=== PATIENT | female | born 1960 | race Caucasian/White ===

== ENCOUNTER 2017-06-07 06:24 | Inpatient (IN) | payer OTHER ==
[~2017-06-07] VITALS: Ht 162.6 cm; Wt 119.0 kg
--- NOTE | 2017-06-07 07:12 | ED GENERAL ADULT ---
See Addendum History of Present Illness General Chief Complaint: General Adult Stated Complaint: SEEN AT [facility] C/O BLOOD CLOT,FEVER,HX INF Source: patient, old records Exam Limitations: no limitations Vital Signs & Intake/Output Vital Signs & Intake/Output Vital Signs Date Time Temp Pulse Resp B/P B/P Pulse O2 O2 Flow FiO2 Mean Ox Delivery Rate 06/07 0803 97.2 06/07 0830 100.2 06/07 0825 100.6 85 06/07 0740 97 Room Air 06/07 0730 100.3 110 144/90 06/07 0641 102.8 122 18 158/79 94 Room Air Allergies Coded Allergies: cefaclor (From CECLOR) (UNKNOWN 06/07/17) pseudoephedrine (From ACTIFED) (UNKNOWN 06/07/17) triprolidine (From ACTIFED) (UNKNOWN 06/07/17) Reconcile Medications Apixaban (Eliquis) 5 MG TABLET 1 TAB PO BID BLOOD THINNER (Reported) Ciprofloxacin HCl (Cipro) 500 MG TABLET 1 TAB PO BID ANTIBIOTIC, INFECTION ( Reported) Cyanocobalamin (Vitamin B-12) 1,000 MCG TABLET 1 TAB PO DAILY VITAMIN SUPPORT (Reported) Insulin Glargine,Hum.rec.anlog (Lantus Solostar) 100 UNIT/ML (3 ML) INSULN.PEN 80 UNIT SC DAILY DIABETES (Reported) Insulin Glargine,Hum.rec.anlog (Lantus Solostar) 100 UNIT/ML (3 ML) INSULN.PEN 25 UNIT SC QPM DIABETES (Reported) L-Methylfolate (Deplin-Algal Oil 15 MG Capsule) 15 MG-90.314 MG CAPSULE 1 CAP PO DAILY SUPPLEMENT (Reported) Levothyroxine Sodium 200 MCG TABLET 1 TAB PO DAILY AC THYROID (Reported) Pyridoxine HCl (Vitamin B-6) 50 MG TABLET 1 TAB PO DAILY VITAMIN SUPPORT ( Reported) Simvastatin (Zocor*) 20 MG TABLET 1 TAB PO DAILY CHOLESTEROL (Reported) Telmisartan (Micardis) 80 MG TABLET 1 TAB PO DAILY HEART (Reported) Triage Note: TRIAGE: PATIENT TO ER REPORTING 8/10 PAIN TO R MIDDLE OF BACK AND UNDER R ARM, NO INJURIES. SAW GUILLERMINA BRENSTEINP DID BLOODWORK WHICH SHOWED INFECTION, TAKING CIPRO FOR BACTERIA IN URINE, "BUT IF I DIDNT GET BETTER WAS TOLD TO COME IN TO HOSPITAL." TEMP 102.8, TOOK TYLENOL "EARLIER, THE 8 HOUR TAB." REPORTS WAS ALSO TAKING FLEXERIL W/ RELIEF THOUGH STOPPED TAKING. DENIES URINARY SX, "ALMOST LIKE A KIDNEY STONE THAT DOESN'T FEEL LIKE IT'S PASSING." HX KIDNEY STONES. Triage Nurses Notes Reviewed? yes HPI: Patient presents to the emergency department complaining of a fever that she's had for the past few weeks. She also has anorexia and myalgias. Patient states that approximately 3 weeks ago she went to [facility] because of the fever. At that time she was having chest and back pain. During that visit this , she had a pulmonary embolus so she was admitted. Patient was started L) and subsequently was discharged. Patient continued to run fevers but no source was found. Patient followed up with her primary care physician 3 days ago for continued fevers. In the office she was found to have bacteria show she was started on Cipro. Patient was taking the Cipro however she still does not feel well and so was instructed to come to the emergency department. Patient denies any nausea or vomiting. There is no dysuria. There is no diarrhea. There is no headache. She continues to have back pain but in the setting of diffuse myalgias. Past History Travel History Traveled to [place] past 21 day No Medical History Any Pertinent Medical History? 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 No Review of Systems Review of Systems Constitutional: Reports: see HPI, chills, fever. EENTM: Reports: no symptoms. Respiratory: Reports: no symptoms. Cardiovascular: Reports: no symptoms. GI: Reports: see HPI (ANOREXIA). Genitourinary: Reports: no symptoms. Musculoskeletal: Reports: see HPI, muscle pain. Skin: Reports: no symptoms. Neurological/Psychological: Reports: no symptoms. Hematologic/Endocrine: Reports: no symptoms. Immunologic/Allergic: Reports: no symptoms. All Other Systems: Reviewed and Negative Physical Exam Physical Exam General Appearance: well developed/nourished, alert, awake, anxious, mild distress Head: atraumatic, normal appearance Eyes: Bilateral: PERRL, EOMI. Ears, Nose, Throat: normal pharynx, normal ENT inspection, hearing grossly normal Neck: normal inspection, supple, full range of motion Respiratory: normal breath sounds, chest non-tender, no respiratory distress, lungs clear Cardiovascular: regular rate/rhythm, normal peripheral pulses Gastrointestinal: normal bowel sounds, soft, non-tender, no organomegaly Back: normal inspection, normal range of motion Extremities: normal inspection, normal capillary refill, normal range of motion, no edema Neurologic/Psych: no motor/sensory deficits, awake, alert, oriented x 3, normal gait, normal mood/affect Skin: intact, normal color, warm/dry Lymphatic: no anterior cervical willis Core Measures ACS in differential dx? No CVA/TIA Diagnosis: No Sepsis Present: No Sepsis Focused Exam Completed? No Progress Differential Diagnoses I considered the following diagnoses in my evaluation of the patient: [PNEUMONIA , INFLUENZA, SEPSIS, BACTERMIA, VIREMIA, ] Plan of Care: Orders Procedure Date/time Status Regular Diet 06/07 L Active LACTIC ACID 06/[address] CHEST W IV CONTRAST 06/[address] ABD & PELVIS W IV CONTRAST 06/07 0945 Active Add-on Test (ER Only) 06/07 0840 Active RAPID VIRAL INFLUENZA A 06/07 710 Complete CULTURE,URINE 06/07 710 Active BLOOD CULTURE 06/07 710 Active URINALYSIS 06/07 710 Complete LYME TITRE 06/07 07 Active LACTIC ACID 06/07 0711 Complete COMPREHENSIVE METABOLIC PANEL 06/07 07 Complete CBC WITHOUT DIFFERENTIAL 06/07 0611 Complete Laboratory Tests 06/07/17 0900: Urinalysis LIGHT H, Urine Color YEL, Urine Clarity HAZY H, Urine pH 6.0, Ur Specific [place] >= 1.030, Urine Protein 100 H, Urine Ketones TRACE H, Urine Nitrite NEG, Urine Bilirubin NEG@ICTO, Urine Urobilinogen 1.0, Ur Leukocyte Esterase NEG, Ur Microscopic SEDIMENT EXAMINED, Urine RBC 1-3, Urine WBC 5-10 H , Ur Epithelial Cells MANY H, Urine Bacteria MANY H, Urine Mucus MOD H, Urine Hemoglobin SMALL H, Urine Glucose 100 H 06/07/17 0711: Lyme Disease Antibody Pending 06/07/17 0650: Anion Gap 14, Estimated GFR > 60, BUN/Creatinine Ratio 30.0 H, Glucose 224 H, Lactic Acid 1.2, Calcium 9.2, Total Bilirubin 1.1, AST 42 H, ALT 131 H, Alkaline Phosphatase 304 H, Total Protein 6.7, Albumin 3.1 L, Globulin 3.6, Albumin/Globulin Ratio 0.9 L, CBC w Diff MAN DIFF ORDERED, RBC 4.11 L, MCV 78.6 L, MCH 25.2 L, MCHC 32.0 L, RDW 14.8 H, MPV 10.0, Gran % 81.3 H, Lymphocytes % 9.8 L, Monocytes % 8.1, Eosinophils % 0.6, Basophils % 0.2, Absolute Granulocytes 14.8 H, Absolute Lymphocytes 1.8, Absolute Monocytes 1.5 H, Absolute Eosinophils 0.1, Absolute Basophils 0, Platelet Estimate ADEQUATE, Anisocytosis 1+ Microbiology 06/07 899 URINE ROUT: Urine Culture - RECD 06/07 729 NASOPHARYN: Influenza Virus A & B Rapid Smear - COMP 06/07 699 BLOOD: Blood Culture - RECD 06/07 0650 BLOOD: Blood Culture - RECD Diagnostic Imaging: Viewed by Me: Radiology Read. Discussed w/RAD: Radiology Read. CXR Impression: PATIENT: ROSITA HICKS PRESENT AGE: 57 PATIENT ACCOUNT NO: [id number] : 61 LOCATION: [facility] ORDERING PHYSICIAN: Jonathon Villa MD SERVICE DATE: 06/07/17 EXAM TYPE: RAD - XRY-CHEST XRAY, TWO VIEWS EXAMINATION: XR CHEST CLINICAL INFORMATION: Fever. COMPARISON: None TECHNIQUE: 2 views of the chest were obtained. FINDINGS: The cardiac mediastinal silhouette is normal in appearance. No effusions or pneumothoraces are visualized. A normal pattern of pulmonary vasculature is identified. The lungs are clear. No gross skeletal abnormalities are noted. IMPRESSION: Normal chest. Lungs clear. DICTATED BY: Salbador Huber MD DATE/TIME DICTATED:06/07/17739 BOND RUNNER:ALLY DATE/TIME TRANSCRIBED:06/07/17739 CONFIDENTIAL, DO NOT COPY WITHOUT APPROPRIATE AUTHORIZATION. <Electronically signed in Other Vendor System> SIGNED BY: Salbador Huber MD 06/07/17 0744 Initial ED EKG: none Departure Departure Disposition: STILL A PATIENT Condition: Stable Clinical Impression Primary Impression: Fever of unknown origin Secondary Impressions: Leukocytosis Referrals: Lynn SINGER,Armando Johnson (PCP/Family) Departure Forms: Customer Survey General Discharge Information Admission Note Spoke With: Velma Claros MD Documentation of Exam: Documentation of any treatments & extenuating circumstances including Concerns Regarding Discharge (functional status, medication knowledge or non-compliance, living conditions, etc.) that warrant an admission rather than observation: [IV fluids, watch off antibiotics and follow-up cultures. May need repeat cultures if fever continues and once she is off antibiotics. Possibility is strep. Tendons endocarditis, she could have an underlying cancer causing the fever and leukocytosis as well as the hypercoagulable state given that she's had a recent diagnosis of a pulmonary emboli without any risk factors. There could also be an underlying rheumatological disorder including vasculitis. Patient will require admission for further workup.] Critical Care Note Critical Care Note Critical Care Time: mins: (90 MN)
--- NOTE | 2017-06-07 07:44 | RADIOLOGY REPORT ---
EXAMINATION: XR CHEST CLINICAL INFORMATION: Fever. COMPARISON: None TECHNIQUE: 2 views of the chest were obtained. FINDINGS: The cardiac mediastinal silhouette is normal in appearance. No effusions or pneumothoraces are visualized. A normal pattern of pulmonary vasculature is identified. The lungs are clear. No gross skeletal abnormalities are noted. IMPRESSION: Normal chest. Lungs clear.
[2017-06-07 07:46] LABS: ABSOLUTE BASOPHIL COUNT 0 /CUMM (0.0-0.2); ABSOLUTE EOSINOPHIL COUNT 0.1 /CUMM (0.0-0.7); ABSOLUTE GRANULOCYTE CT 14.8 /CUMM (1.4-6.5); ABSOLUTE LYMPH COUNT 1.8 /CUMM (1.2-3.4); ABSOLUTE MONOCYTE COUNT 1.5 /CUMM (0.10-0.60); BASOPHIL % 0.2 % (0.0-2.0); EOSINOPHIL % 0.6 % (0-5); GRANULOCYTE % 81.3 % (42.2-75.2); HEMATOCRIT 32.3 % (37-47); MEAN CORPUSCULAR HGB 25.2 PG (27.0-31.0); MEAN CORPUSCULAR VOLUME 78.6 FL (81.0-99.0); PLATELET COUNT 367 /CUMM (130-400); RBC DISTRIBUTION WIDTH 14.8 % (11.5-14.5); RED BLOOD CELL CT 4.11 /CUMM (4.20-5.40); WHITE BLOOD CELL COUNT 18.2 /CUMM (4.8-10.8)
[2017-06-07] MEDS ORDERED: ELIQUIS5 M1 PO (07:53)
[2017-06-07] MEDS ORDERED: CIPRO500 M1 PO (07:53)
[2017-06-07] MEDS ORDERED: LEVOTHYROXINE200 MC1 PO (07:53)
[2017-06-07] MEDS ORDERED: LANTUS SOL100 UNIT/1 SC ×2 (07:54)
[2017-06-07] MEDS ORDERED: ZOCOR20 M1 PO (07:55)
[2017-06-07] MEDS ORDERED: DEPLIN-ALGAL O1 EAC1 PO (07:56)
[2017-06-07] MEDS ORDERED: MICARDIS80 M1 PO (07:56)
[2017-06-07] MEDS ORDERED: VITAMIN B-650 M2 PO (07:56)
[2017-06-07] MEDS ORDERED: VITAMIN B-121000 MC3 PO (07:57)
--- NOTE | 2017-06-07 10:05 | History & Physical ---
Kristina Pabon MD,[facility] 06/07/17 1005: General Information and HPI MD Statement: I have seen and personally examined ROSITA HICKS and documented this H&P. The patient is a 57 year old F who presented with a patient stated chief complaint of [fever]. Source of Information: patient Exam Limitations: patient's age, clinical condition History of Present Illness: 57-year-old female with past medical history significant for pulmonary embolism on anticoagulation with Eliquis, insulin-dependent diabetes mellitus, hypothyroidism on levothyroxine, hyperlipidemia on statin, hypertension on Telmisartan, currently on ciprofloxacin for urinary tract infection, came to emergency department patient chief complain of fever, anorexia and myalgias. Patient states that around 3 weeks ago she went to [facility]. She was febrile at that time and also was complaining of chest and back pain she was found to have pulmonary embolism and she was admitted there she was started on Eliquis and discharged. According to patient she continued to develop fevers and no source was identified. Patient followed up with her primary care doctor 3 days ago and was found to have urinary tract infection started on Cipro. She was not feeling well and therefore was told to come to emergency department. Review of system was negative for any chest pain, shortness of breath, nausea, vomiting, abdominal pain, dysuria, diarrhea, or headaches. Review of system positive for continued back pain with with myalgias. 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 EENTM: Denies: visual changes. Cardiovascular: Denies: chest pain, palpitations. Respiratory: Denies: cough, short of breath. GI: Denies: abdominal pain, nausea. Musculoskeletal: Reports: back pain. Neurological/Psychological: Denies: headache. All Other Systems: Reviewed and Negative Exam & Diagnostic Data Last 24 Hrs of Vital Signs/I&O Vital Signs Date Time Temp Pulse Resp B/P B/P Pulse O2 O2 Flow FiO2 Mean Ox Delivery Rate 06/07 0903 97.2 06/07 0830 100.2 06/07 0825 100.6 85 06/07 0740 97 Room Air 06/07 0730 100.3 110 144/90 06/07 0641 102.8 122 18 158/79 94 Room Air Intake & Output 06/07 1600 06/07 0800 06/07 0000 Intake Total 1100 Output Total 150 Balance 950 Intake, IV 1000 Intake, Oral 100 Output, Urine 150 Patient 255 lb Weight Weight Reported by Patient Measurement Method Physical Exam General Appearance Alert, Oriented X3, Cooperative, Mild Distress Skin No Rashes HEENT Atraumatic Cardiovascular Regular Rate, Normal S1, Normal S2 Lungs Clear to Auscultation, Normal Air Movement Abdomen Normal Bowel Sounds, Soft, No Tenderness, Obese Neurological Normal Speech, Normal Tone, Sensation Intact Extremities No Cyanosis, No Edema Vascular Normal Pulses Last 24 Hrs of Labs/Maco: Laboratory Tests 06/07/17 0900: Urinalysis LIGHT H, Urine Color YEL, Urine Clarity HAZY H, Urine pH 6.0, Ur Specific [place] >= 1.030, Urine Protein 100 H, Urine Ketones TRACE H, Urine Nitrite NEG, Urine Bilirubin NEG@ICTO, Urine Urobilinogen 1.0, Ur Leukocyte Esterase NEG, Ur Microscopic SEDIMENT EXAMINED, Urine RBC 1-3, Urine WBC 5-10 H , Ur Epithelial Cells MANY H, Urine Bacteria MANY H, Urine Mucus MOD H, Urine Hemoglobin SMALL H, Urine Glucose 100 H 06/07/17 0711: Lyme Disease Antibody Pending 06/07/17 0650: Anion Gap 14, Estimated GFR > 60, BUN/Creatinine Ratio 30.0 H, Glucose 224 H, Lactic Acid 1.2, Calcium 9.2, Total Bilirubin 1.1, AST 42 H, ALT 131 H, Alkaline Phosphatase 304 H, Total Protein 6.7, Albumin 3.1 L, Globulin 3.6, Albumin/Globulin Ratio 0.9 L, CBC w Diff MAN DIFF ORDERED, RBC 4.11 L, MCV 78.6 L, MCH 25.2 L, MCHC 32.0 L, RDW 14.8 H, MPV 10.0, Gran % 81.3 H, Lymphocytes % 9.8 L, Monocytes % 8.1, Eosinophils % 0.6, Basophils % 0.2, Absolute Granulocytes 14.8 H, Absolute Lymphocytes 1.8, Absolute Monocytes 1.5 H, Absolute Eosinophils 0.1, Absolute Basophils 0, Platelet Estimate ADEQUATE, Anisocytosis 1+ Microbiology 06/07 899 URINE ROUT: Urine Culture - RECD 06/07 729 NASOPHARYN: Influenza Virus A & B Rapid Smear - COMP 06/07 699 BLOOD: Blood Culture - RECD 06/07 0650 BLOOD: Blood Culture - RECD Diagnostic Data CXR Results No acute cardiopulmonary findings Assessment/Plan Assessment: 57-year-old female with past medical history significant for pulmonary embolism on anticoagulation with Eliquis, insulin-dependent diabetes mellitus, hypothyroidism on levothyroxine, hyperlipidemia on statin, hypertension on Telmisartan, currently on ciprofloxacin for urinary tract infection, came to emergency department patient chief complain of fever, anorexia and myalgias. Vitals in emergency department patient febrile with a MAXIMUM TEMPERATURE of 102.8, tachycardic with a heart rate of 122 on admission, no tachypnea, blood pressure systolic stable 144-158 and diastolic 79-90, oxygen saturation of 96% on room air. Significant labs on admission showed white count leukocytosis of 18.2, without any baseline labs available, left shift granulocytes of 81.3,, platelet count 367, hemoglobin of 10.3 hematocrit of 32.3, no baseline available, no significant electrolyte abnormalities sodium 140, potassium 3.9, BUN 15 and creatinine 0.5, glucose of 224, AST 42 and 80 of 131, no baseline available, alkaline phosphatase 304, UA positive for trace ketones, 5-10 WBC, and bacteria. Lyme disease antibody pending, CT chest abdomen pelvis results There are a few small bilateral pulmonary nodules -- probably metastases. Ill- defined hypodense mass of the pancreatic body surrounds the splenic artery and occludes the splenic vein. Multiple hypodense lesions within the liver are consistent with metastases. Probable metastases within the enlarged posterosuperior spleen, as well. Lymphadenopathy is present within the abdomen. Left adrenal metastasis. A somewhat wedge-shaped hypodense focus in hepatic segment VII could represent an infarct. Large leiomyoma of the uterus. Patient was admitted on general medicine so for the management of following problems #1 Possible Pancreatic malignancy with metastasis #2 Fever of unknown origin/leukocytosis/sepsis #3 Transaminitis #4 Recent urinary tract infection on antibiotics #5 Recent history of pulmonary embolism on eliquis #6 History of [id number] diabetes mellitus Possible Pancreatic malignancy with metastasis Given recent findings of CAT scan, it seems like patient has a possible pancreatic cancer with metastasis. After discussing with gastroenterology, plan is to get a liver biopsy to confirm the diagnosis. We will discuss with interventional radiology about the possible procedure of liver biopsy as patient has taken her Eliquis this morning. In the meanwhile he should place the patient on IV heparin. oncology consult placed. Vascular surgery for Fever of unknown origin/leukocytosis/? sepsis Possibility of liver abscesses in the setting of fever plus leukocytosis, was also discussed and therefore surgical consultation was also obtained. We will also work her up to rule out the possibilities of infection. Patient is pancultured. We will follow urine culture as patient was being treated with ciprofloxacin for UTI recently. Fever subsided with IV Tylenol. Patient on admission was tachycardic, high-grade fever, suspected source of infection is unclear. No lactic acidosis and stable blood pressure. Patient does meet the criteria for sepsis but our suspicion for source is very low. she is hemodynamically stable. no lactic acid. She was already given 100 of normal saline we will start her oncontinous IV fluids. Transaminitis When followed should avoid IV Tylenol as patient already has transaminitis which could be secondary to malignancy or the Tylenol 625 mg, 2 tablets every 8 hours that patient was taking. We should also obtain Tylenol levels. Chronic medical conditions We will continue patient's antihypertensive medications, Accu-Cheks and insulin sliding scale along with long-acting insulin Patient is full code Patient is on Eliquis for DVT prophylaxis Patient is on diabetic diet As Ranked By This Provider Problem List: 1. Leukocytosis 2. Fever of unknown origin Core Measures/Misc (11/19) Acute Coronary Syndrome ACS Diagnosis: No Congestive Heart Failure Congestive Heart Failure Diagnosis No Cerebrovascular Accident CVA/TIA Diagnosis: No VTE (View Protocol) VTE Risk Factors Age>40 No Mechanical VTE Prophylaxis d/t N/A MechProphylax Ordered No VTE Pharm Prophylaxis d/t Medical Contraindication Sepsis (View protocol) Sepsis Present: No Elias SINGER,Laura 06/07/17 1439: General Information and HPI Allergies/Medications Home Med list Apixaban (Eliquis) 5 MG TABLET 1 TAB PO BID BLOOD THINNER (Reported) Ciprofloxacin HCl (Cipro) 500 MG TABLET 1 TAB PO BID ANTIBIOTIC, INFECTION ( Reported) Cyanocobalamin (Vitamin B-12) 1,000 MCG TABLET 1 TAB PO DAILY VITAMIN SUPPORT (Reported) Insulin Glargine,Hum.rec.anlog (Lantus Solostar) 100 UNIT/ML (3 ML) INSULN.PEN 80 UNIT SC DAILY DIABETES (Reported) Insulin Glargine,Hum.rec.anlog (Lantus Solostar) 100 UNIT/ML (3 ML) INSULN.PEN 25 UNIT SC QPM DIABETES (Reported) L-Methylfolate (Deplin-Algal Oil 15 MG Capsule) 15 MG-90.314 MG CAPSULE 1 CAP PO DAILY SUPPLEMENT (Reported) Levothyroxine Sodium 200 MCG TABLET 1 TAB PO DAILY AC THYROID (Reported) Pyridoxine HCl (Vitamin B-6) 50 MG TABLET 1 TAB PO DAILY VITAMIN SUPPORT ( Reported) Simvastatin (Zocor*) 20 MG TABLET 1 TAB PO DAILY CHOLESTEROL (Reported) Telmisartan (Micardis) 80 MG TABLET 1 TAB PO DAILY HEART (Reported) Attending MD Review Statement Attending Statement Attending MD Statement: examined this patient, discuss w/resident/PA/MALT ROASTER, agreed w/resident/PA/MALT ROASTER, discussed with family, reviewed EMR data (avail), discussed with nursing, reviewed images, amended to note Attending Assessment/Plan: Please also see my separate addendum.
[2017-06-07 11:10] VITALS: BP 152/96
[2017-06-07 11:18] VITALS: BP 152/96
--- NOTE | 2017-06-07 11:41 | CT SCAN REPORT ---
EXAMINATION: CT CHEST WITH IV CONTRAST CT ABDOMEN AND PELVIS WITH IV CONTRAST CLINICAL INFORMATION: Fever. Elevated liver function tests and leukocytosis. Abscess? Lymphoma? COMPARISON: CXR from 06/07/2017 TECHNIQUE: Multidetector CT imaging examination of the chest, abdomen and pelvis was performed with intravenous administration of 95 mL Optiray 320. Axial images are displayed at 5 mm and 0.65 mm slice thickness. Coronal and sagittal reformatted images were generated at the technologist's workstation and submitted for review. DLP: 1423 mGy-cm FINDINGS: CHEST - LUNGS and PLEURA: Trachea and central airways are widely patent and normal in caliber. There is a 0.5 cm solid nodule in the anterior right upper lobe (image 125, series 4). A 0.6 cm solid, noncalcified nodule is present in the medial right lower lobe (image 277, series 4). Small, 0.2 cm nodule is present within the lingula (image 254, series 4). Mild atelectasis in dependent aspect of each lower lobe. No pulmonary consolidation or pleural effusion. MEDIASTINUM: Cardiac chambers, pulmonary arteries and thoracic aorta are normal in caliber. The esophagus is unremarkable. No mediastinal mass. LYMPHATICS: No axillary or hilar lymphadenopathy. Within the lower, posterior mediastinum, an abnormally enlarged left-sided paraesophageal lymph node is 1.2 cm short axis dimension. CHEST WALL/BONES: Small sclerotic focus within the sternum is compatible with bone island. Bone island of the T6 vertebral body. No aggressive osseous lesion in the thorax. ABDOMEN AND PELVIS - HEPATOBILIARY: Gallbladder is surgically absent. No intrahepatic or extrahepatic bile duct dilatation. Multiple hypoenhancing masses (generally with attenuation in the range of 20-40 Hounsfield units) are scattered throughout the liver and are consistent with metastases. The majority of lesions are in the size range of 0.5 cm to 1.8 cm. In addition, there is an approximately 2 cm wide, somewhat wedge-shaped hypodense focus within hepatic segment VII, and the wedge-shape suggest possibility of infarction. PANCREAS: Ill-defined hypodense mass of the pancreatic body measures 7.5 cm transverse and 4 cm AP; it surrounds the splenic artery. The splenic vein is occluded at its confluence with the superior mesenteric vein, and thrombus projects into the proximal main portal vein. SPLEEN: Prominent spleen measures 15.8 cm AP. The 1.1 cm hypodense lesion in the inferior spleen has focal calcification along its inferior wall; this lesion has attenuation of 20 HU, suggestive of a cyst. Ill-defined foci of decreased attenuation within the posterior superior spleen are suspicious for metastases (image 365, series 4). ADRENAL GLANDS: The right adrenal gland is normal. 3.1 x 2.6 cm mass of the left adrenal gland has attenuation of 38 HU on these contrast-enhanced images. KIDNEYS, URETERS, BLADDER: Kidneys are normal in size and enhance symmetrically. No renal mass, nephrolithiasis or hydronephrosis. Urinary bladder is unremarkable. GI TRACT AND PERITONEUM: Stomach is normal. Bowel loops are normal in caliber. Appendix is normal. No evidence of inflammation or obstruction along the gastrointestinal tract. No ascites or pneumoperitoneum. ABDOMINAL WALL: Minimal protrusion of fat into the umbilicus.. VASCULAR: Mild atherosclerosis of the abdominal aorta. LYMPH NODES: Mildly enlarged, confluent, hepatic and periportal lymph nodes. A large portacaval lymph node measures 2 cm AP dimension (as measured on image 450, series 4). Superior to the renal vessels, the largest left para-aortic lymph node is 1 cm short axis dimension. Inferior to the renal vessels, largest left para-aortic lymph node is 1.3 cm axis dimension. No iliac or inguinal lymphadenopathy.. PELVIC VISCERA: 7.7 x 6.6 x 6 cm homogeneous mass of the anterior uterine body is consistent with leiomyoma. No adnexal mass or pelvic free fluid. OSSEOUS STRUCTURES: No suspicious lesions within the lumbar spine, pelvic bones or proximal femurs. Multilevel facet arthropathy of the lumbar spine. Transitional lumbosacral anatomy with lumbarization of S1. IMPRESSION: 1. There are a few small bilateral pulmonary nodules -- probably metastases. 2. Ill-defined hypodense mass of the pancreatic body surrounds the splenic artery and occludes the splenic vein. Multiple hypodense lesions within the liver are consistent with metastases. Probable metastases within the enlarged posterosuperior spleen, as well. Lymphadenopathy is present within the abdomen. Left adrenal metastasis. 3. A somewhat wedge-shaped hypodense focus in hepatic segment VII could represent an infarct. 4. Large leiomyoma of the uterus.
--- NOTE | 2017-06-07 12:12 | CT SCAN REPORT ---
EXAMINATION: CT CHEST, ABDOMEN AND PELVIS WITH CONTRAST CLINICAL INFORMATION: Fever, leukocytosis. Evaluate for abscess formation COMPARISON: None TECHNIQUE: Multidetector volumetric CT imaging of the chest was obtained after the administration of 50 mL of Optiray 320 intravenous contrast without immediate adverse reactions. Axial MIP volume rendering provided. Sagittal and coronal reformatted images were obtained. DLP: 1423.38 mGy-cm FINDINGS: BEAD MAKER: Unremarkable LUNGS: 0.7 cm right upper lobe nodule (series 5 image 126). Linear atelectatic changes noted in the bilateral lower lobes, right greater than left. Pleural-based atelectatic change right lower lobe (series 5 image 164). Tracheal bronchial tree is within normal limits.. MEDIASTINUM: Mild low-attenuation prominent lymph node noted in the right pretracheal region measuring 0.7 cm in short axis. Reactive nodes also noted in the prevascular, subcarinal and epicardiac location. No gross hilar lymphadenopathy. PLEURA: Minor pleural thickening bilateral lower lobes. AXILLA: No evidence of lymphadenopathy. No suspicious abscess formation identified in the chest wall. No organized fluid collection. LIVER, GALLBLADDER AND BILIARY TREE:: Multiple low-attenuation foci scattered within the liver and spleen. Most of these foci do not demonstrate simple fluid attenuation larger lesions are as follows: Segment 7 right hepatic lobe (series 2 image 41 measuring 1.6 cm, junction segment 7/8 right hepatic lobe measuring 1.7 cm segment IVb left hepatic lobe measuring 1.5 cm. Wedge-shaped lobulated low-attenuation noted in the subcapsular location junction segment 6/7 measuring approximately 2.6 x 2.4 x 5.6 cm (series 2 image 50 and series 602 image 88). Hounsfield units are not compatible with simple cyst. Mild hepatosplenomegaly. SPLEEN: Low-attenuation foci also identified in the spleen with a larger focus in the posterior spleen measuring 1.2 cm (series 2 image 46). Lesion with punctate internal hyperdensity medial inferior splenic hilar region measuring 1.2 cm (series 2 image 56-57). Spleen also demonstrates enhancing focus in the posterior spleen measuring 1.2 cm (series 2 image 53). PANCREAS: There is abnormal lobulated elongated low-attenuation involving the body and tail of the pancreas measuring approximately 7.6 x 4.7 cm (series 2 image 57-59). There is hazy stranding surrounding the pancreatic tissue. Internal attenuation is higher than simple fluid. Nonvisualization of the splenic vein. There is focal low-attenuation filling defect noted in the adjacent portal vein (series 2 image 59 and series 602 image 53) suspicious for adjacent portal vein thrombosis unlikely acute splenic vein thrombosis. Haziness/edema also surrounding the splenic artery. ADRENAL GLANDS: Left adrenal mass with mild heterogeneous enhancement measuring approximately 3.3 x 2.8 cm. Unremarkable right adrenal gland. KIDNEYS: Symmetric bilateral enhancement. GI tract: No acute bowel pathology. Peripancreatic hazy infiltration abutting the adjacent gastric wall. Mild colonic diverticulosis. No acute diverticulitis appreciated. LYMPH NODES: Multiple enlarged retroperitoneal and peripancreatic lymph nodes. Larger lymph node demonstrating internal low attenuation noted in the precaval location (series 602 image 58-61) measuring approximately 2.2 cm in short axis . Larger left periaortic lymph node (series 602 image 56). Findings are compatible with lymphadenopathy. Vascular structures: Findings suspicious for acute/subacute splenic vein and partial portal venous thrombosis. Infiltrating/inflammatory changes surrounding the proximal superior mesenteric vein. Aorta is within normal limits. PELVIS: Enlarged anteverted uterus measuring 11.6 x 9.5 x 8.2 cm. There is internal low attenuation measuring 6.6 x 8 x 6.7 cm. Hounsfield units are compatible with solid attenuation. Based on its location, it is uncertain if this represents endometrial or myometrial mass. There is prominence of the adnexal vessels left superolateral aspect of the uterus. No evidence of free fluid. OSSEOUS STRUCTURES: No acute or suspicious osseous abnormality. IMPRESSION: 1. Large lobulated low-attenuation masslike focus involving the body and tail of the pancreas measuring approximately 7.6 x 4.7 cm. There is adjacent splenic vein thrombosis and partial thrombosis at the confluence of the portal vein. Peripancreatic edema/infiltration is noted. Findings are suspicious for neoplastic process. Secondary pancreatitis from pancreatic ductal obstruction is a likely possibility. Differential possibility includes pancreatic abscesses given the patient's elevated white count and fever. Clinical, laboratory and possible biopsy correlation is recommended. 2. Peripancreatic, precaval and retroperitoneal lymphadenopathy. Largest precaval lymph node measures 2.2 cm in short axis with internal low attenuation. Metastatic lymphadenopathy is suspected. 3. Multiple low-attenuation hepatic and splenic foci. Metastatic disease or microabscesses series are included in the differential possibilities. Larger lesion appears lobulated subcapsular location posterior right hepatic lobe. 4. Mildly enhancing splenic lesion represents a nonspecific finding including small hemangioma. 5. Right upper lobe pulmonary nodule represents a nonspecific finding. Metastatic disease is included in the differential possibility. 6. Left adrenal mass suspicious for metastases. 7. Large uterine myometrial or endometrial mass. Differential possibility includes large fibroid. Critical results were discussed with Dr. Villa at 11:54 AM on 06/07/2017.
--- NOTE | 2017-06-07 12:53 | Cons- General Surgery ---
General Information and HPI Consulting Request Date of Consult: 06/07/17 Requested By: Addi Martinez MD History of Present Illness: Patient presents with recurrent fevers of unknown origin. Recently diagnosed with Pumonary embolism. No associated symptoms. No pain. No n/v/change to bowel or bladder habits. No dyspnea or cough. no msk symptoms. no chest pain. Allergies/Medications Allergies: Coded Allergies: cefaclor (From CECLOR) (UNKNOWN 06/07/17) pseudoephedrine (From ACTIFED) (UNKNOWN 06/07/17) triprolidine (From ACTIFED) (UNKNOWN 06/07/17) Home Med List: Apixaban (Eliquis) 5 MG TABLET 1 TAB PO BID BLOOD THINNER (Reported) Ciprofloxacin HCl (Cipro) 500 MG TABLET 1 TAB PO BID ANTIBIOTIC, INFECTION ( Reported) Cyanocobalamin (Vitamin B-12) 1,000 MCG TABLET 1 TAB PO DAILY VITAMIN SUPPORT (Reported) Insulin Glargine,Hum.rec.anlog (Lantus Solostar) 100 UNIT/ML (3 ML) INSULN.PEN 80 UNIT SC DAILY DIABETES (Reported) Insulin Glargine,Hum.rec.anlog (Lantus Solostar) 100 UNIT/ML (3 ML) INSULN.PEN 25 UNIT SC QPM DIABETES (Reported) L-Methylfolate (Deplin-Algal Oil 15 MG Capsule) 15 MG-90.314 MG CAPSULE 1 CAP PO DAILY SUPPLEMENT (Reported) Levothyroxine Sodium 200 MCG TABLET 1 TAB PO DAILY AC THYROID (Reported) Pyridoxine HCl (Vitamin B-6) 50 MG TABLET 1 TAB PO DAILY VITAMIN SUPPORT ( Reported) Simvastatin (Zocor*) 20 MG TABLET 1 TAB PO DAILY CHOLESTEROL (Reported) Telmisartan (Micardis) 80 MG TABLET 1 TAB PO DAILY HEART (Reported) Past History Medical History Blood Transfusion Hx: No Neurological: NONE, migraine EENT: sinusitis Cardiovascular: hypertension, hyperlipidemia Respiratory: obstructive sleep apnea Gastrointestinal: diverticulitis, POLYPS (BENIGN) Hepatic: NONE Renal: hematuria, nephrolithiasis Musculoskeletal: NONE, osteoarthritis Psychiatric: chronic pain disorder Endocrine: diabetes, hypothyroidism Blood Disorders: anemia Cancer(s): NONE 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 Home Smoking Status: Former Smoker ETOH Use: occasional use Illicit Drug Use: denies illicit drug use Review of Systems Review of Systems: see hpi Exam & Diagnostic Data Vital Signs and I&O Vital Signs Date Time Temp Pulse Resp B/P B/P Pulse O2 O2 Flow FiO2 Mean Ox Delivery Rate 06/07 1118 99.0 94 20 152/96 95 Room Air 06/07 1110 99.0 94 20 152/96 95 Room Air 06/07 1042 97.9 06/07 1022 97.2 80 18 165/77 99 Room Air 06/07 0903 97.2 06/07 0830 100.2 06/07 0825 100.6 85 06/07 0740 97 Room Air 06/07 0730 100.3 110 144/90 06/07 0641 102.8 122 18 158/79 94 Room Air Intake & Output 06/07 1600 06/07 0806/07 0000 06/06 1600 06/06 0806/06 0000 Intake Total 1100 Output Total 150 Balance 950 Intake, IV 1000 Intake, Oral 100 Output, Urine 150 Patient 255 lb Weight Weight Reported by Patient Measurement Method Physical Exam: gen; looks well. nad. obese. heent; anicteric, perrl, eomi abd; soft, nt, nd, no hernia, no mass. no hsm ext; no c/c/e. Last 24 Hours of Labs: Laboratory Tests 06/07 06/07 0900 0711 Serology Lyme Disease Antibody Pending Urines Urinalysis LIGHT H Urine Color (YEL,AMB,STR) YEL Urine Clarity (CLEAR) HAZY H Urine pH (5.0 - 8.0) 6.0 Ur Specific Moffit (1.001 - 1.035) >= 1.030 Urine Protein (NEG,<30 MG/DL) 100 H Urine Ketones (NEG) TRACE H Urine Nitrite (NEG) NEG Urine Bilirubin (NEG) NEG@ICTO Urine Urobilinogen (0.1 - 1.0 EU/dl) 1.0 Ur Leukocyte Esterase (NEG) NEG Ur Microscopic SEDIMENT EXAMINED Urine RBC (0 - 5 /HPF) 1-3 Urine WBC (0 - 2 /HPF) 5-10 H Ur Epithelial Cells (NONE,FEW) MANY H Urine Bacteria (NEG/NONE) MANY H Urine Mucus (FEW,NONE) MOD H Urine Hemoglobin (NEG) SMALL H Urine Glucose (N MG/DL) 100 H 06/07 0650 Chemistry Sodium (137 - 145 mmol/L) 140 Potassium (3.5 - 5.1 mmol/L) 3.9 Chloride (98 - 107 mmol/L) 97 L Carbon Dioxide (22 - 30 mmol/L) 29 Anion Gap (5 - 16) 14 BUN (7 - 17 mg/dL) 15 Creatinine (0.5 - 1.0 mg/dL) 0.5 Estimated GFR (>60 ml/min) > 60 BUN/Creatinine Ratio (7 - 25 %) 30.0 H Glucose (65 - 99 mg/dL) 224 H Lactic Acid (0.7 - 2.1 mmol/L) 1.2 Calcium (8.4 - 10.2 mg/dL) 9.2 Total Bilirubin (0.2 - 1.3 mg/dL) 1.1 AST (14 - 36 U/L) 42 H ALT (9 - 52 U/L) 131 H Alkaline Phosphatase (<127 U/L) 304 H Total Protein (6.3 - 8.2 g/dL) 6.7 Albumin (3.5 - 5.0 g/dL) 3.1 L Globulin (1.9 - 4.2 gm/dL) 3.6 Albumin/Globulin Ratio (1.1 - 2.2 %) 0.9 L Hematology CBC w Diff MAN DIFF ORDERED WBC (4.8 - 10.8 /CUMM) 18.2 H RBC (4.20 - 5.40 /CUMM) 4.11 L Hgb (12.0 - 16.0 G/DL) 10.3 L Hct (37 - 47 %) 32.3 L MCV (81.0 - 99.0 FL) 78.6 L MCH (27.0 - 31.0 PG) 25.2 L MCHC (33.0 - 37.0 G/DL) 32.0 L RDW (11.5 - 14.5 %) 14.8 H Plt Count (130 - 400 /CUMM) 367 MPV (7.4 - 10.4 FL) 10.0 Gran % (42.2 - 75.2 %) 81.3 H Lymphocytes % (20.5 - 51.1 %) 9.8 L Monocytes % (1.7 - 9.3 %) 8.1 Eosinophils % (0 - 5 %) 0.6 Basophils % (0.0 - 2.0 %) 0.2 Absolute Granulocytes (1.4 - 6.5 /CUMM) 14.8 H Absolute Lymphocytes (1.2 - 3.4 /CUMM) 1.8 Absolute Monocytes (0.10 - 0.60 /CUMM) 1.5 H Absolute Eosinophils (0.0 - 0.7 /CUMM) 0.1 Absolute Basophils (0.0 - 0.2 /CUMM) 0 Platelet Estimate (ADEQUATE) ADEQUATE Anisocytosis 1+ Imaging Results: CT images reviewed/viewed. . concern for pancreatic cancer with diffuse hepatic metastases. Assessment/Plan Assessment/Plan Findings c/w pancreatic cancer with hepatic metastases. Unclear source of fever. No role for surgery. Will need diagnostic needle biopsy by IR when anticoagulation reversed. Consult Acknowledgment - Thank you for your consult request.
[2017-06-07 14:26] VITALS: BP 157/98
--- NOTE | 2017-06-07 14:39 | PN- Att Addend ---
Attending Addendum Attending Brief Note 57 y/o F with pmh sig for recently diagnosed pulmonary embolism on anticoagulation with Eliquis, insulin-dependent diabetes mellitus, hypothyroidism on levothyroxine, hyperlipidemia on statin, hypertension, recently seen at [facility] for fever. Found to have pulmonary embolism and was started on Elqiuis. Patient claims that she has been sick for more than 3 weeks when she developed sinus infection. She got treated with Augmentin. It finally start to loosen up but then she developed fevers again then she went to [facility]. Prior to that she was treated at a walk-in clinic. She was discharged from [facility] and followed up with her primary care doctor because fever did not break. The MICRO COMPUTER DATA PROCESSOR at the primary care doctor's office ordered some blood work and a urine test. She was then started on Cipro for possible UTI. She continued to have fevers despite taking the Cipro therefore presented to [facility]. She also complains of pain on the right side of her abdomen including right upper quadrant and right lateral side of the mid back. She said that this pain has been present for a few days and she had a similar kind of pain in the past when she had a cholecystectomy done. She denies any weight loss, nausea, vomiting. She does have history of IBS that she has alternating constipation and diarrhea. She denies any change in the color of her stools. She said that her fevers are has high as 103. Flu swab was negative in the emergency room. Her imaging which included CT abdomen and pelvis and CT chest in the emergency room is consistent with multiple lesions in the liver as well as pancreatic mass. Vital Signs Date Time Temp Pulse Resp B/P B/P Pulse O2 O2 Flow FiO2 Mean Ox Delivery Rate / 1118 99.0 94 20 152/96 95 Room Air 04/05 1110 99.0 94 20 152/96 95 Room Air / 1042 97.9 / 1022 97.2 80 18 165/77 99 Room Air 04/05 0903 97.2 04/05 0830 100.2 04/05 0825 100.6 85 04/05 0740 97 Room Air / 0730 100.3 110 144/90 04/05 0641 102.8 122 18 158/79 94 Room Air on exam; aox3, nad. cv; s1,s2, rrr resp; clear abd; soft, tender in ruq, bs+ ext; no edema back: + tenderness in mid right lateral back. Laboratory Tests 06/07 06/07 0900 0711 Serology Lyme Disease Antibody Pending Urines Urinalysis LIGHT H Urine Color (YEL,AMB,STR) YEL Urine Clarity (CLEAR) HAZY H Urine pH (5.0 - 8.0) 6.0 Ur Specific Wiley (1.001 - 1.035) >= 1.030 Urine Protein (NEG,<30 MG/DL) 100 H Urine Ketones (NEG) TRACE H Urine Nitrite (NEG) NEG Urine Bilirubin (NEG) NEG@ICTO Urine Urobilinogen (0.1 - 1.0 EU/dl) 1.0 Ur Leukocyte Esterase (NEG) NEG Ur Microscopic SEDIMENT EXAMINED Urine RBC (0 - 5 /HPF) 1-3 Urine WBC (0 - 2 /HPF) 5-10 H Ur Epithelial Cells (NONE,FEW) MANY H Urine Bacteria (NEG/NONE) MANY H Urine Mucus (FEW,NONE) MOD H Urine Hemoglobin (NEG) SMALL H Urine Glucose (N MG/DL) 100 H 06/07 0650 Chemistry Sodium (137 - 145 mmol/L) 140 Potassium (3.5 - 5.1 mmol/L) 3.9 Chloride (98 - 107 mmol/L) 97 L Carbon Dioxide (22 - 30 mmol/L) 29 Anion Gap (5 - 16) 14 BUN (7 - 17 mg/dL) 15 Creatinine (0.5 - 1.0 mg/dL) 0.5 Estimated GFR (>60 ml/min) > 60 BUN/Creatinine Ratio (7 - 25 %) 30.0 H Glucose (65 - 99 mg/dL) 224 H Lactic Acid (0.7 - 2.1 mmol/L) 1.2 Calcium (8.4 - 10.2 mg/dL) 9.2 Total Bilirubin (0.2 - 1.3 mg/dL) 1.1 AST (14 - 36 U/L) 42 H ALT (9 - 52 U/L) 131 H Alkaline Phosphatase (<127 U/L) 304 H Total Protein (6.3 - 8.2 g/dL) 6.7 Albumin (3.5 - 5.0 g/dL) 3.1 L Globulin (1.9 - 4.2 gm/dL) 3.6 Albumin/Globulin Ratio (1.1 - 2.2 %) 0.9 L Hematology CBC w Diff MAN DIFF ORDERED WBC (4.8 - 10.8 /CUMM) 18.2 H RBC (4.20 - 5.40 /CUMM) 4.11 L Hgb (12.0 - 16.0 G/DL) 10.3 L Hct (37 - 47 %) 32.3 L MCV (81.0 - 99.0 FL) 78.6 L MCH (27.0 - 31.0 PG) 25.2 L MCHC (33.0 - 37.0 G/DL) 32.0 L RDW (11.5 - 14.5 %) 14.8 H Plt Count (130 - 400 /CUMM) 367 MPV (7.4 - 10.4 FL) 10.0 Gran % (42.2 - 75.2 %) 81.3 H Lymphocytes % (20.5 - 51.1 %) 9.8 L Monocytes % (1.7 - 9.3 %) 8.1 Eosinophils % (0 - 5 %) 0.6 Basophils % (0.0 - 2.0 %) 0.2 Absolute Granulocytes (1.4 - 6.5 /CUMM) 14.8 H Absolute Lymphocytes (1.2 - 3.4 /CUMM) 1.8 Absolute Monocytes (0.10 - 0.60 /CUMM) 1.5 H Absolute Eosinophils (0.0 - 0.7 /CUMM) 0.1 Absolute Basophils (0.0 - 0.2 /CUMM) 0 Platelet Estimate (ADEQUATE) ADEQUATE Anisocytosis 1+ Toxicology Acetaminophen (10.0 - 30.0 ug/mL) Pending CT chest with IV contrast: IMPRESSION: 1. Large lobulated low-attenuation masslike focus involving the body and tail of the pancreas measuring approximately 7.6 x 4.7 cm. There is adjacent splenic vein thrombosis and partial thrombosis at the confluence of the portal vein. Peripancreatic edema/infiltration is noted. Findings are suspicious for neoplastic process. Secondary pancreatitis from pancreatic ductal obstruction is a likely possibility. Differential possibility includes pancreatic abscesses given the patient's elevated white count and fever. Clinical, laboratory and possible biopsy correlation is recommended. 2. Peripancreatic, precaval and retroperitoneal lymphadenopathy. Largest precaval lymph node measures 2.2 cm in short axis with internal low attenuation. Metastatic lymphadenopathy is suspected. 3. Multiple low-attenuation hepatic and splenic foci. Metastatic disease or microabscesses series are included in the differential possibilities. Larger lesion appears lobulated subcapsular location posterior right hepatic lobe. 4. Mildly enhancing splenic lesion represents a nonspecific finding including small hemangioma. 5. Right upper lobe pulmonary nodule represents a nonspecific finding. Metastatic disease is included in the differential possibility. 6. Left adrenal mass suspicious for metastases. 7. Large uterine myometrial or endometrial mass. Differential possibility includes large fibroid. CT abd/pelvis: IMPRESSION: 1. There are a few small bilateral pulmonary nodules -- probably metastases. 2. Ill-defined hypodense mass of the pancreatic body surrounds the splenic artery and occludes the splenic vein. Multiple hypodense lesions within the liver are consistent with metastases. Probable metastases within the enlarged posterosuperior spleen, as well. Lymphadenopathy is present within the abdomen. Left adrenal metastasis. 3. A somewhat wedge-shaped hypodense focus in hepatic segment VII could represent an infarct. 4. Large leiomyoma of the uterus. A/P; 57 y/o F with pmh sig for recently diagnosed pulmonary embolism on anticoagulation with Eliquis, insulin-dependent diabetes mellitus, hypothyroidism on levothyroxine, hyperlipidemia on statin, hypertension, presenting with fevers. Imaging studies are consistent with multiple lesions in the liver the question of metastatic disease and a pancreatic mass with a question of relating to malignant process versus abscesses. Reteroperitoneal lymphadenopathy was also seen. Splenic vein as well as partial portal vein thrombosis is also seen. Patient admitted to medicine. Surgical consult was obtained from the emergency room. Please hold Eliquis. Please start the patient on heparin drip. Please obtain ID/GI/vascular consults. Patient's pain will be managed with analgesics. Flu swab negative. Please follow-up on urine culture, blood cultures. Urinalysis was not that impressive. Patient will need biopsy of these liver lesions. Please check with interventional radiology about the timeline for biopsy. Patient did take her Eliquis this a.m. Please avoid any other hepatotoxic medications. DVT px: Hep gtt Full code.
--- NOTE | 2017-06-07 14:43 | Cons- Infect Disease ---
General Information and HPI Consulting Request Date of Consult: 06/07/17 Requested By: Laura Griffin MD Reason for Consult: Fever/leukocytosis Source of Information: patient, family History of Present Illness: This is a 57-year-old woman with a history of diabetes, hypertension, hypothyroidism, irritable bowel syndrome, osteoarthritis and fibromyalgia, with chronic pain, hospitalized 2 weeks prior to admission at [facility] with a one week history of fevers, sinus congestion and the more acute onset of interscapular pain, found to be hypoxic and febrile and diagnosed with a pulmonary embolism, discharged on Eliquis, seen by her primary care physician 1 week prior to admission and treated with Flexeril for sciatica, begun on Ciprofloxacin 3 days prior to admission for a possible UTI, admitted today after presenting to the emergency room with persistent fevers, associated with chills and sweats, and right-sided back pain. On admission she was febrile to 102.8. Laboratory data revealed a white blood cell count of 18,000, BUN/creatinine 15 and 0.5, alkaline phosphatase 304, AST/ALT 42 and 131. Urinalysis 1-3 RBCs/5-10 WBCs. Chest x-ray was negative. CT of the chest, abdomen and pelvis revealed several pulmonary nodules, a large lobulated low attenuation masslike focus involving the body and tail of the pancreas, measuring 7.6 x 4.7 cm, with adjacent splenic vein thrombosis and a partial thrombosis of the confluence of the portal vein, peripancreatic edema/infiltration; peripancreatic, precaval and retroperitoneal lymphadenopathy; multiple low-attenuation hepatic and splenic lesions; possible infarct within the liver; left adrenal mass; large uterine myometrial or endometrial mass. Presently she reports mild discomfort in the right back. She denies any chest pain, cough, shortness of breath, nausea, vomiting or change in her usual abdominal discomfort or diarrhea and no dysuria. She does report a 20 pound weight loss over the past 2 years but denies any anorexia or decreased oral intake. Allergies/Medications Allergies: Coded Allergies: cefaclor (From CECLOR) (UNKNOWN 06/07/17) pseudoephedrine (From ACTIFED) (UNKNOWN 06/07/17) triprolidine (From ACTIFED) (UNKNOWN 06/07/17) Home Med List: Apixaban (Eliquis) 5 MG TABLET 1 TAB PO BID BLOOD THINNER (Reported) Ciprofloxacin HCl (Cipro) 500 MG TABLET 1 TAB PO BID ANTIBIOTIC, INFECTION ( Reported) Cyanocobalamin (Vitamin B-12) 1,000 MCG TABLET 1 TAB PO DAILY VITAMIN SUPPORT (Reported) Insulin Glargine,Hum.rec.anlog (Lantus Solostar) 100 UNIT/ML (3 ML) INSULN.PEN 80 UNIT SC DAILY DIABETES (Reported) Insulin Glargine,Hum.rec.anlog (Lantus Solostar) 100 UNIT/ML (3 ML) INSULN.PEN 25 UNIT SC QPM DIABETES (Reported) L-Methylfolate (Deplin-Algal Oil 15 MG Capsule) 15 MG-90.314 MG CAPSULE 1 CAP PO DAILY SUPPLEMENT (Reported) Levothyroxine Sodium 200 MCG TABLET 1 TAB PO DAILY AC THYROID (Reported) Pyridoxine HCl (Vitamin B-6) 50 MG TABLET 1 TAB PO DAILY VITAMIN SUPPORT ( Reported) Simvastatin (Zocor*) 20 MG TABLET 1 TAB PO DAILY CHOLESTEROL (Reported) Telmisartan (Micardis) 80 MG TABLET 1 TAB PO DAILY HEART (Reported) Past History Travel History Traveled to [place] past 21 day No Medical History Blood Transfusion Hx: No Neurological: migraine EENT: sinusitis Cardiovascular: hypertension, hyperlipidemia Respiratory: obstructive sleep apnea Gastrointestinal: diverticulitis, irritable bowel syndrome, POLYPS (BENIGN) Hepatic: NONE Renal: nephrolithiasis Musculoskeletal: fibromyalgia, osteoarthritis Psychiatric: chronic pain disorder Endocrine: diabetes, hypothyroidism Blood Disorders: anemia Cancer(s): NONE 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 Home Smoking Status: Former Smoker ETOH Use: occasional use Illicit Drug Use: denies illicit drug use Review of Systems Review of Systems All Other Systems: Reviewed and Negative Exam & Diagnostic Data Last 24 Hrs of Vital Signs/I&O Vital Signs Date Time Temp Pulse Resp B/P B/P Pulse O2 O2 Flow FiO2 Mean Ox Delivery Rate 06/07 1426 100.1 110 20 157/98 93 Room Air 06/07 1118 99.0 94 20 152/96 95 Room Air 06/07 1110 99.0 94 20 152/96 95 Room Air 06/07 1042 97.9 06/07 1022 97.2 80 18 165/77 99 Room Air 06/07 0903 97.2 06/07 0830 100.2 06/07 0825 100.6 85 / 0740 97 Room Air 06/07 0730 100.3 110 144/90 06/07 0641 102.8 122 18 158/79 94 Room Air Intake & Output 06/07 1600 06/07 0800 04 0000 Intake Total 1100 Output Total 150 Balance 950 Intake, IV 1000 Intake, Oral 100 Output, Urine 150 Patient 255 lb 255 lb Weight Weight Reported by Patient Reported by Patient Measurement Method Physical Exam Other Physical Findings: MAXIMUM TEMPERATURE 102.8. She is awake and alert in no acute distress. Skin reveals no rash. HEENT negative. Neck is supple with no adenopathy. Lungs are clear. Heart regular rhythm with no murmur. Abdomen is obese, soft, mildly tender over the left upper quadrant and epigastrium, with no guarding or rebound , positive bowel sounds. Back no CVA tenderness. Extremities no cyanosis, clubbing or edema. Neuro is without focality. Last 24 Hours of Lab Results: Laboratory Tests 06/07 06/07 0900 0711 Serology Lyme Disease Antibody Pending Urines Urinalysis LIGHT H Urine Color (YEL,AMB,STR) YEL Urine Clarity (CLEAR) HAZY H Urine pH (5.0 - 8.0) 6.0 Ur Specific [place] (1.001 - 1.035) >= 1.030 Urine Protein (NEG,<30 MG/DL) 100 H Urine Ketones (NEG) TRACE H Urine Nitrite (NEG) NEG Urine Bilirubin (NEG) NEG@ICTO Urine Urobilinogen (0.1 - 1.0 EU/dl) 1.0 Ur Leukocyte Esterase (NEG) NEG Ur Microscopic SEDIMENT EXAMINED Urine RBC (0 - 5 /HPF) 1-3 Urine WBC (0 - 2 /HPF) 5-10 H Ur Epithelial Cells (NONE,FEW) MANY H Urine Bacteria (NEG/NONE) MANY H Urine Mucus (FEW,NONE) MOD H Urine Hemoglobin (NEG) SMALL H Urine Glucose (N MG/DL) 100 H 06/07 0650 Chemistry Sodium (137 - 145 mmol/L) 140 Potassium (3.5 - 5.1 mmol/L) 3.9 Chloride (98 - 107 mmol/L) 97 L Carbon Dioxide (22 - 30 mmol/L) 29 Anion Gap (5 - 16) 14 BUN (7 - 17 mg/dL) 15 Creatinine (0.5 - 1.0 mg/dL) 0.5 Estimated GFR (>60 ml/min) > 60 BUN/Creatinine Ratio (7 - 25 %) 30.0 H Glucose (65 - 99 mg/dL) 224 H Lactic Acid (0.7 - 2.1 mmol/L) 1.2 Calcium (8.4 - 10.2 mg/dL) 9.2 Total Bilirubin (0.2 - 1.3 mg/dL) 1.1 AST (14 - 36 U/L) 42 H ALT (9 - 52 U/L) 131 H Alkaline Phosphatase (<127 U/L) 304 H Total Protein (6.3 - 8.2 g/dL) 6.7 Albumin (3.5 - 5.0 g/dL) 3.1 L Globulin (1.9 - 4.2 gm/dL) 3.6 Albumin/Globulin Ratio (1.1 - 2.2 %) 0.9 L Hematology CBC w Diff MAN DIFF ORDERED WBC (4.8 - 10.8 /CUMM) 18.2 H RBC (4.20 - 5.40 /CUMM) 4.11 L Hgb (12.0 - 16.0 G/DL) 10.3 L Hct (37 - 47 %) 32.3 L MCV (81.0 - 99.0 FL) 78.6 L MCH (27.0 - 31.0 PG) 25.2 L MCHC (33.0 - 37.0 G/DL) 32.0 L RDW (11.5 - 14.5 %) 14.8 H Plt Count (130 - 400 /CUMM) 367 MPV (7.4 - 10.4 FL) 10.0 Gran % (42.2 - 75.2 %) 81.3 H Lymphocytes % (20.5 - 51.1 %) 9.8 L Monocytes % (1.7 - 9.3 %) 8.1 Eosinophils % (0 - 5 %) 0.6 Basophils % (0.0 - 2.0 %) 0.2 Absolute Granulocytes (1.4 - 6.5 /CUMM) 14.8 H Absolute Lymphocytes (1.2 - 3.4 /CUMM) 1.8 Absolute Monocytes (0.10 - 0.60 /CUMM) 1.5 H Absolute Eosinophils (0.0 - 0.7 /CUMM) 0.1 Absolute Basophils (0.0 - 0.2 /CUMM) 0 Platelet Estimate (ADEQUATE) ADEQUATE Anisocytosis 1+ Toxicology Acetaminophen (10.0 - 30.0 ug/mL) Pending Last 24 Hours of [place]o Results: Blood cultures 2 June 07 pending Urine culture June 07 pending Rapid flu swab June 07 negative Urine culture June 04 contaminated specimen Diagnostic Data Recent Imaging Findings: Chest x-ray was negative. CT of the chest, abdomen and pelvis revealed several pulmonary nodules, a large lobulated low attenuation masslike focus involving the body and tail of the pancreas, measuring 7.6 x 4.7 cm, with adjacent splenic vein thrombosis and a partial thrombosis of the confluence of the portal vein, with peripancreatic edema/infiltration; peripancreatic, precaval and retroperitoneal lymphadenopathy ; multiple low-attenuation hepatic and splenic foci; possible infarct within the liver; left adrenal mass; large uterine myometrial or endometrial mass Assessment/Plan Assessment/Plan Impression: This is a 57-year-old woman diagnosed 2 weeks prior to admission with a pulmonary embolism after presenting with fevers, sinus congestion and interscapular back pain, discharged on Eliquis, with persistent fevers and right -sided back pain since then, begun on Ciprofloxacin for a possible UTI 2 days prior to admission, admitted today with persistent fevers, associated with chills and sweats, and right-sided back pain, found to be febrile with a leukocytosis, elevated liver enzymes and with a CT of the chest, abdomen and pelvis revealing pulmonary nodules, a large pancreatic mass, multiple liver and splenic lesions and splenic and portal vein vein thromboses. Her clinical presentation is consistent with metastatic cancer, most likely secondary to a primary pancreatic malignancy. Her recent pulmonary embolism was likely secondary to a hypercoagulable state secondary to this malignancy. Her fevers and leukocytosis are most likely secondary to the metastatic liver disease, though other possible sources include a secondary pancreatitis secondary to pancreatic ductal obstruction, cholangitis, though there is no mention of biliary ductal dilatation, or the thromboses of the portal and splenic veins. As an infectious process seems less likely and she appears stable she can be followed off antibiotics pending further evaluation. Suggestion: 1. Would pursue a biopsy by IR of the liver or pancreatic lesions once she is off Eliquis per IR protocol 2. Further management of her anticoagulation per Medicine 3. Follow off antibiotics pending above Consult Acknowledgment - Thank you for your consult request.
[2017-06-07 20:09] LABS: PTT 29 SEC (25-37)
--- NOTE | 2017-06-07 21:13 | ULTRASOUND REPORT ---
EXAMINATION: ABDOMINAL ULTRASOUND LIMITED CLINICAL INFORMATION: Liver lesions. COMPARISON: Same day abdomen and pelvic CT which includes the upper abdomen. TECHNIQUE: Real-time imaging of the right upper quadrant abdominal viscera. FINDINGS: LIVER: The liver is of overall normal size and echogenicity. There are several low-attenuation lesions throughout the liver similar in appearance to the same day CT. The largest is within the right lobe measuring approximately 2.5 cm. Within the portal region, there is an approximately 2.6 x 2.2 cm soft tissue echogenicity focus with surrounding vascularity. GALLBLADDER: The patient is status post cholecystectomy. COMMON BILE DUCT: Normal in caliber measuring 0.4 cm in diameter. RIGHT KIDNEY: Normal. No hydronephrosis. No renal calculi or focal parenchymal lesions. The kidney measures 13.7 cm in maximum dimension. FREE FLUID: None. IMPRESSION: Multiple nonspecific hypoechoic lesions throughout the liver. The differential diagnosis includes abscesses, metastatic foci and complicated cyst. Consider correlation with abdominal MRI with contrast for further tissue characterization. Soft tissue focus within the region of the peggy which could correspond to a periportal lymph node or represents intraluminal venous thrombus. This could also be evaluated with MR.
[2017-06-07 22:34] VITALS: BP 140/62
[2017-06-08 02:50] LABS: PTT 30 SEC (25-37)
[2017-06-08 06:58] VITALS: BP 144/64
--- NOTE | 2017-06-08 07:38 | PN- Housestaff ---
See Addendum Subjective Follow-up For: Likely pancreatitic cancer with mets and secondary fever Subjective: She had fever last evening to 101.1 and subsequently defervesced. She feels fine this morning, pain is well controlled. Review of Systems Constitutional: Reports: see HPI. EENTM: Reports: no symptoms. Cardiovascular: Reports: no symptoms. Respiratory: Reports: no symptoms. Gastrointestinal: Reports: no symptoms. Genitourinary: Reports: no symptoms. Musculoskeletal: Reports: no symptoms. Skin: Reports: no symptoms. Neurological/Psychological: Reports: no symptoms. Hematologic/Endocrine: Reports: no symptoms. Immunologic/Allergic: Reports: no symptoms. Objective Last 24 Hrs of Vital Signs/I&O Vital Signs Date Time Temp Pulse Resp B/P B/P Pulse O2 O2 Flow FiO2 Mean Ox Delivery Rate 06/08 0658 99.7 111 18 144/64 90 / 2234 101.1 106 18 140/62 90 Room Air / 1941 110 157/98 06/07 1912 100.8 / 1733 100.5 04/ 1732 100.5 04/ 1426 100.1 110 20 157/98 93 Room Air 04/05 1118 99.0 94 20 152/96 95 Room Air 04/05 1110 99.0 94 20 152/96 95 Room Air 04/05 1042 97.9 / 1022 97.2 80 18 165/77 99 Room Air 04/05 0903 97.2 / 0830 100.2 /05 0825 100.6 85 /05 0740 97 Room Air Intake & Output 06/08 0800 04/ 0000 06/07 1600 Intake Total 782 424 6594 Output Total 150 Balance 506 456 9531 Intake, IV 200 1300 Intake, Oral 480 150 700 Output, Urine 150 Patient 116.176 kg 122.668 kg Weight Weight Bed scale Measurement Method Physical Exam General Appearance: Alert, Oriented X3, Cooperative, No Acute Distress Cardiovascular: Regular Rate, Normal S1, Normal S2 Lungs: Clear to Auscultation Abdomen: Normal Bowel Sounds, Soft, No Tenderness Extremities: No Edema, Normal Pulses, No Tenderness/Swelling Current Medications: Current Medications Sig/Lonnie Start time Last Medication Dose Route Stop Time Status Admin Acetaminophen 650 MG Q8P PRN 06/07 1445 AC 04/05 PO 1510 Acetaminophen 1,000 MG Q8P PRN 06/07 1430 DC PO Heparin Sodium 9,200 UNIT ONCE ONE 06/08 0330 DC 06/08 (Porcine) IV 06/08 0331 0355 Heparin Sodium 5,000 UNIT .STK-MED ONE 06/07 1735 DC (Porcine) IV 06/07 1736 Heparin Sodium 25,000 UNIT Q24H 06/07 1445 AC 06/08 (Porcine) IV 0346 Sodium Chloride 500 ML Heparin Sodium 5,000 UNIT ONCE ONE 06/07 1445 DC 04 (Porcine) IV 04 1446 1942 Heparin Sodium 25,000 UNIT Q24H / 1445 DC (Porcine) IV Sodium Chloride 500 ML Insulin Aspart 0 TIDAC 06/07 1200 AC 06/07 SC 2041 Levothyroxine Sodium 0.2 MG DAILY AC 06/07 1039 AC 06/08 PO 0516 Losartan Potassium 100 MG DAILY 06/08 1000 AC PO Losartan Potassium 100 MG ONCE ONE 06/07 1900 DC 04/ PO 06/07 1901 1941 Sodium Chloride 1,000 ML Q10H 06/07 1415 DC 04/ IV 04 0014 1511 Sodium Chloride 1,000 ML BOLUS ONE 06/07 0715 DC 04/ IV 06/07 0814 0739 Tramadol HCl 50 MG Q4P PRN 06/07 1345 AC 06/08 PO 0217 Last 24 Hrs of Lab/Maco Results Last 24 Hrs of Labs/Mics: Laboratory Tests 06/08/17 0705: Sodium Pending, Potassium Pending, Chloride Pending, Carbon Dioxide Pending, Anion Gap Pending, BUN Pending, Creatinine Pending, BUN/Creatinine Ratio Pending , Total Bilirubin Pending, Direct Bilirubin Pending, AST Pending, ALT Pending, Alkaline Phosphatase Pending, Total Protein Pending, Albumin Pending, APTT Pending, CBC w Diff Pending, WBC Pending, RBC Pending, Hgb Pending, Hct Pending, MCV Pending, MCH Pending, MCHC Pending, RDW Pending, Plt Count Pending, MPV Pending 06/08/17 0600: Carcinoembryonic Ag Pending, CA 19-9 Antigen Pending 06/08/17 0213: APTT 30 06/07/17 1852: APTT 29 06/07/17 1011: Lactic Acid Cancelled 06/07/17 0900: Urinalysis LIGHT H, Urine Color YEL, Urine Clarity HAZY H, Urine pH 6.0, Ur Specific [place] >= 1.030, Urine Protein 100 H, Urine Ketones TRACE H, Urine Nitrite NEG, Urine Bilirubin NEG@ICTO, Urine Urobilinogen 1.0, Ur Leukocyte Esterase NEG, Ur Microscopic SEDIMENT EXAMINED, Urine RBC 1-3, Urine WBC 5-10 H , Ur Epithelial Cells MANY H, Urine Bacteria MANY H, Urine Mucus MOD H, Urine Hemoglobin SMALL H, Urine Glucose 100 H Microbiology 06/07 1203 LOWER RESP: Respiratory Culture - COLB 06/07 1203 LOWER RESP: Gram Stain - COLB 06/07 899 URINE ROUT: Urine Culture - RECD Assessment/Plan Assessment: 57-year-old female with past medical history significant for pulmonary embolism on anticoagulation with apixiban, insulin-dependent diabetes mellitus, hypothyroidism on levothyroxine, hyperlipidemia on statin, hypertension on Telmisartan who presented with fever, anorexia and myalgias. Problem list: 1. Likely pancreatic cancer with metastasis to liver and lung 2. Fever, likely secondary to malignancy 3. Recent pulmonary embolism 4. Hepatic infarction #Likely pancreatic cancer with metastasis to liver and lung: Given recent findings of CT scan, it seems like patient has pancreatic cancer with metastasis. After discussing with specialists, plan is to get a liver biopsy on Sunday to confirm the diagnosis. -Appreciate gastroenterology, oncology, surgery recommendations -Liver biopsy on Sunday, nothing by mouth after midnight Sunday -Heparin drip, hold apixiban -Pain control #Hepatic infarction: CT imaging shows hypodense focus within the liver suggesting infarction. -Appreciate vascular surgery recommendations #Fever, likely secondary to malignancy: Patient has malignancy with metastasis to liver and recurrent fevers. Infectious disease has been consulted and thinks this is likely secondary to the malignancy. -Acetaminophen for fevers -Follow cultures -Appreciate ID recommendations #Recent pulmonary embolism: Patient was previously on apixiban. This was stopped and she is now being maintained on heparin drip pending liver biopsy on Sunday. -Heparin drip, can consider restarting apixiban after biopsy #Chronic medical conditions: -Continue other home medications DVT prophylaxis with heparin Regular diet Full code Problem List: 1. Fever malignant Pain Ratin Pain Location: no Pain Goal: Remain pain free Pain Plan: see a/p Tomorrow's Labs & Rationales: rhys
[2017-06-08 08:00] LABS: ABSOLUTE BASOPHIL COUNT 0 /CUMM (0.0-0.2); ABSOLUTE EOSINOPHIL COUNT 0.1 /CUMM (0.0-0.7); ABSOLUTE LYMPH COUNT 2.5 /CUMM (1.2-3.4); EOSINOPHIL % 0.9 % (0-5); PLATELET COUNT 275 /CUMM (130-400)
[2017-06-08 08:24] LABS: ABSOLUTE GRANULOCYTE CT 10.1 /CUMM (1.4-6.5); ABSOLUTE MONOCYTE COUNT 1.9 /CUMM (0.10-0.60); BASOPHIL % 0.3 % (0.0-2.0); MEAN CORPUSCULAR HGB 25.4 PG (27.0-31.0); MEAN CORPUSCULAR HGB CONC 32.5 G/DL (33.0-37.0); MEAN CORPUSCULAR VOLUME 78.2 FL (81.0-99.0); MEAN PLATELET VOLUME 9.9 FL (7.4-10.4); RBC DISTRIBUTION WIDTH 15.1 % (11.5-14.5); RED BLOOD CELL CT 3.44 /CUMM (4.20-5.40); WHITE BLOOD CELL COUNT 14.7 /CUMM (4.8-10.8)
[2017-06-08 08:30] LABS: HEMATOCRIT 26.9 % (37-47); PTT 58 SEC (25-37)
--- NOTE | 2017-06-08 11:38 | PN- Infect Dx ---
Subjective Subjective: MAXIMUM TEMPERATURE 101.1 without complaints Objective Last 24 Hrs of Vital Signs/I&O Vital Signs Date Time Temp Pulse Resp B/P B/P Pulse O2 O2 Flow FiO2 Mean Ox Delivery Rate 06/08 0943 108 144/64 06/08 0658 99.7 111 18 144/64 90 / 2234 101.1 106 18 140/62 90 Room Air 06/07 1941 110 157/98 06/07 1912 100.8 06/07 1733 100.5 06/07 1732 100.5 06/07 1426 100.1 110 20 157/98 93 Room Air Intake & Output 06/08 1600 06/08 0800 06/08 0000 Intake Total 480 350 Output Total Balance 480 350 Intake, IV 200 Intake, Oral 480 150 Patient 256 lb Weight Physical Exam Other Physical Findings: She appears comfortable in no acute distress Lungs are clear Heart regular rhythm with no murmur Abdomen is obese, soft, tender on palpation of the upper abdomen, with no guarding or rebound, positive bowel sounds Back no flank tenderness Extremities no cyanosis, clubbing or edema Results Last 24 Hours of Lab Results: Laboratory Tests 06/08 06/08 06/08 1030 0705 0600 Chemistry Sodium (137 - 145 mmol/L) 137 Potassium (3.5 - 5.1 mmol/L) 3.8 Chloride (98 - 107 mmol/L) 98 Carbon Dioxide (22 - 30 mmol/L) 29 Anion Gap (5 - 16) 10 BUN (7 - 17 mg/dL) 12 Creatinine (0.5 - 1.0 mg/dL) 0.4 L Estimated GFR (>60 ml/min) > 60 BUN/Creatinine Ratio (7 - 25 %) 30.0 H Total Bilirubin (0.2 - 1.3 mg/dL) 1.0 Direct Bilirubin (< 0.4 mg/dL) 0.7 H AST (14 - 36 U/L) 41 H ALT (9 - 52 U/L) 94 H Alkaline Phosphatase (<127 U/L) 271 H Total Protein (6.3 - 8.2 g/dL) 5.9 L Albumin (3.5 - 5.0 g/dL) 2.6 L Carcinoembryonic Ag Pending CA 19-9 Antigen Pending Coagulation APTT (25 - 37 SEC) Pending 58 H Hematology CBC w Diff NO MAN DIFF REQ WBC (4.8 - 10.8 /CUMM) 14.7 H RBC (4.20 - 5.40 /CUMM) 3.44 L Hgb (12.0 - 16.0 G/DL) 8.7 L Hct (37 - 47 %) 26.9 L MCV (81.0 - 99.0 FL) 78.2 L MCH (27.0 - 31.0 PG) 25.4 L MCHC (33.0 - 37.0 G/DL) 32.5 L RDW (11.5 - 14.5 %) 15.1 H Plt Count (130 - 400 /CUMM) 275 MPV (7.4 - 10.4 FL) 9.9 Gran % (42.2 - 75.2 %) 69.0 Lymphocytes % (20.5 - 51.1 %) 17.0 L Monocytes % (1.7 - 9.3 %) 12.8 H Eosinophils % (0 - 5 %) 0.9 Basophils % (0.0 - 2.0 %) 0.3 Absolute Granulocytes (1.4 - 6.5 /CUMM) 10.1 H Absolute Lymphocytes (1.2 - 3.4 /CUMM) 2.5 Absolute Monocytes (0.10 - 0.60 /CUMM) 1.9 H Absolute Eosinophils (0.0 - 0.7 /CUMM) 0.1 Absolute Basophils (0.0 - 0.2 /CUMM) 0 06/08 06/07 0213 1852 Coagulation APTT (25 - 37 SEC) 30 29 Last 24 Hours of Maco Results: Blood cultures 2 June 07 negative Urine culture June 07 negative Assessment/Plan ID Impression: Fevers and leukocytosis most likely secondary to her presumed metastatic disease to the liver, with no evidence of any infectious process and with her cultures so far negative. She is otherwise stable; therefore she can continue to be followed off antibiotics pending further evaluation. She is scheduled for a liver biopsy on June 11, after she has been off Eliquis for several days. Suggestion: 1. Await liver biopsy 2. Continue to follow off antibiotics
[2017-06-08 14:13] VITALS: BP 140/82
[2017-06-08 15:14] LABS: PTT 29 SEC (25-37)
[2017-06-08 16:52] LABS: PT 16.6 SEC (9.4-12.5)
[2017-06-08 22:01] VITALS: BP 139/81
[2017-06-09 00:39] LABS: PTT 40 SEC (25-37)
[2017-06-09 06:58] VITALS: BP 145/79
[2017-06-09 08:50] LABS: ABSOLUTE BASOPHIL COUNT 0 /CUMM (0.0-0.2); ABSOLUTE EOSINOPHIL COUNT 0.5 /CUMM (0.0-0.7); ABSOLUTE GRANULOCYTE CT 8.6 /CUMM (1.4-6.5); ABSOLUTE LYMPH COUNT 2.2 /CUMM (1.2-3.4); ABSOLUTE MONOCYTE COUNT 1.4 /CUMM (0.10-0.60); BASOPHIL % 0.4 % (0.0-2.0); GRANULOCYTE % 67.4 % (42.2-75.2); HEMATOCRIT 26.8 % (37-47); MEAN CORPUSCULAR HGB 25.1 PG (27.0-31.0); MEAN CORPUSCULAR VOLUME 78.4 FL (81.0-99.0); MEAN PLATELET VOLUME 10.3 FL (7.4-10.4); PLATELET COUNT 270 /CUMM (130-400); RBC DISTRIBUTION WIDTH 15.1 % (11.5-14.5); RED BLOOD CELL CT 3.42 /CUMM (4.20-5.40); WHITE BLOOD CELL COUNT 12.8 /CUMM (4.8-10.8)
[2017-06-09 08:52] LABS: PTT 87 SEC (25-37)
--- NOTE | 2017-06-09 12:15 | PN- Housestaff ---
See Addendum Subjective Follow-up For: Pancreatitic cancer with metastasis Fever likely tumor fever Subjective: Patient seen and examined. Resting comfortably. Did not offer any complaints. tmax 100.4 Guaic negative Review of Systems Constitutional: Reports: see HPI. Objective Last 24 Hrs of Vital Signs/I&O Vital Signs Date Time Temp Pulse Resp B/P B/P Pulse O2 O2 Flow FiO2 Mean Ox Delivery Rate 06/09 0904 145/79 06/09 0658 97.9 84 20 145/79 94 Room Air 06/09 0045 98.5 06/09 0000 CPAP 06/08 2243 100.5 06/08 2243 100.5 06/08 2201 100.4 102 20 139/81 92 CPAP 06/08 2142 100.4 06/08 2138 100.4 06/08 1413 99.6 114 20 140/82 92 Room Air 06/08 1305 100.0 06/08 1257 100.0 Intake & Output 06/09 1600 06/09 0800 06/09 0000 Intake Total 842.7 1080.8 Output Total 400 Balance 442.7 1080.8 Intake, IV 362.7 360.8 Intake, Oral 480 720 Number 0 0 Bowel Movements Output, Urine 400 Physical Exam General Appearance: Alert, Oriented X3 Other Physical Findings: Cardiovascular: Regular Rate, Normal S1, Normal S2 Lungs: Clear to Auscultation Abdomen: Normal Bowel Sounds, Soft, No Tenderness Extremities: No Edema, Normal Pulses, No Tenderness/Swelling Current Medications: Current Medications Sig/Lonnie Start time Last Medication Dose Route Stop Time Status Admin Acetaminophen 650 MG .STK-MED ONE 06/087 DC PO 06/08 213 Acetaminophen 650 MG Q8P PRN 06/07 1445 AC 06/08 PO 2138 Heparin Sodium 8,700 UNIT ONCE ONE 06/09 0115 DC 06/09 (Porcine) IV 06/09 0116 0118 Heparin Sodium 10,000 UNIT .STK-MED ONE 06/09 0109 DC (Porcine) IV 06/09 0110 Heparin Sodium 8,700 UNIT ONCE ONE 06/08 1615 DC 06/08 (Porcine) IV 06/08 1616 1729 Heparin Sodium 25,000 UNIT Q24H 06/07 1445 AC 06/09 (Porcine) IV 0335 Sodium Chloride 500 ML Ibuprofen 400 MG Q6P PRN 06/08 1215 AC 06/08 PO 2243 Insulin Aspart 0 TIDAC 06/07 1200 AC 06/09 SC 0904 Insulin Detemir 30 UNITS DAILY 06/09 1000 AC 06/09 SC 0904 Insulin Detemir 20 UNITS AT BEDTIME 06/08 2200 AC 06/08 SC 2134 Insulin Detemir 20 UNITS BID 06/08 1000 DC 06/08 SC 0945 Levothyroxine Sodium 0.2 MG DAILY AC 06/07 1039 AC 06/09 PO 0546 Losartan Potassium 100 MG DAILY 06/08 1000 AC 06/09 PO 0904 Patient Medication 1 ED ONE ONE 06/08 1430 DC 06/08 Teaching ED 06/08 1431 1729 Simethicone 80 MG Q4P PRN 06/08 1300 AC 06/08 PO 2242 Tramadol HCl 50 MG Q4P PRN 06/07 1345 AC 06/09 PO 1024 Last 24 Hrs of Lab/Maco Results Last 24 Hrs of Labs/Mics: Laboratory Tests 06/09/17 0642: APTT 87 H, CBC w Diff NO MAN DIFF REQ, RBC 3.42 L, MCV 78.4 L, MCH 25.1 L, MCHC 32.0 L, RDW 15.1 H, MPV 10.3, Gran % 67.4, Lymphocytes % 17.4 L, Monocytes % 10.8 H, Eosinophils % 4.0, Basophils % 0.4, Absolute Granulocytes 8.6 H, Absolute Lymphocytes 2.2, Absolute Monocytes 1.4 H, Absolute Eosinophils 0.5, Absolute Basophils 0 06/08/17 2244: APTT 40 H 06/08/17 1420: PT 16.6 H, INR 1.52 H, APTT 29 Assessment/Plan Assessment: 57-year-old female with past medical history significant for pulmonary embolism on anticoagulation with apixiban, insulin-dependent diabetes mellitus, hypothyroidism on levothyroxine, hyperlipidemia on statin, hypertension on Telmisartan who presented with fever, anorexia and myalgias. Problem list: 1. Likely pancreatic cancer with metastasis to liver and lung 2. Fever, likely secondary to malignancy 3. Recent pulmonary embolism 4. Hepatic infarction #Likely pancreatic cancer with metastasis to liver and lung: Given recent findings of CT scan, it seems like patient has pancreatic cancer with metastasis. After discussing with specialists, plan is to get a liver biopsy on Sunday to confirm the diagnosis. -Appreciate gastroenterology, oncology, surgery recommendations -Liver biopsy on Sunday, nothing by mouth after midnight Sunday -Heparin drip, hold apixiban -Pain control #Hepatic infarction: CT imaging shows hypodense focus within the liver suggesting infarction. -Appreciate vascular surgery recommendations -Trend lfts #Fever, likely secondary to malignancy: Patient has malignancy with metastasis to liver and recurrent fevers. Infectious disease has been consulted and thinks this is likely secondary to the malignancy. Tmax 100.4, WBC count trending down -Acetaminophen for fevers -Follow cultures -Appreciate ID recommendations #Recent pulmonary embolism: Patient was previously on apixiban. This was stopped and she is now being maintained on heparin drip pending liver biopsy on Sunday. -Heparin drip, can consider restarting apixiban after biopsy #Chronic medical conditions: -Continue other home medications DVT prophylaxis with heparin Regular diet Full code Problem List: 1. Fever of unknown origin Pain Ratin Pain Location: n/a Pain Goal: Pain 4 or less Pain Plan: prn Tomorrow's Labs & Rationales: cbc lfts
--- NOTE | 2017-06-09 14:01 | Cons- Vascular Surgery ---
General Information and HPI Consulting Request Date of Consult: 06/09/17 Requested By: Laura Griffin MD Reason for Consult: Splenic vein thrombosis Source of Information: patient Exam Limitations: no limitations History of Present Illness: 57y/o woman presented to ED for evaluation of possible sinus infection. She has noted dyspnea, and ED evaluation revealed hypoxia. She underwent CT for evaluation, and incidental finding of splenic vein thrombosis was noted, along with pancreatic mass. Denies jaundice, pancreatitis, GI obstructive symptoms. No prior hx of venous thrombosis. She had noted pre-admission right calf swelling which has since resolved. She was admitted, placed on heparin gtt, and is pending evaluation of pancreatic mass. Vascular surgery was consulted for management of splenic vein thrombosis. Allergies/Medications Allergies: Coded Allergies: cefaclor (From CECLOR) (UNKNOWN 06/07/17) pseudoephedrine (From ACTIFED) (UNKNOWN 06/07/17) triprolidine (From ACTIFED) (UNKNOWN 06/07/17) Home Med List: Apixaban (Eliquis) 5 MG TABLET 1 TAB PO BID BLOOD THINNER (Reported) Ciprofloxacin HCl (Cipro) 500 MG TABLET 1 TAB PO BID ANTIBIOTIC, INFECTION ( Reported) Cyanocobalamin (Vitamin B-12) 1,000 MCG TABLET 1 TAB PO DAILY VITAMIN SUPPORT (Reported) Insulin Glargine,Hum.rec.anlog (Lantus Solostar) 100 UNIT/ML (3 ML) INSULN.PEN 80 UNIT SC DAILY DIABETES (Reported) Insulin Glargine,Hum.rec.anlog (Lantus Solostar) 100 UNIT/ML (3 ML) INSULN.PEN 25 UNIT SC QPM DIABETES (Reported) L-Methylfolate (Deplin-Algal Oil 15 MG Capsule) 15 MG-90.314 MG CAPSULE 1 CAP PO DAILY SUPPLEMENT (Reported) Levothyroxine Sodium 200 MCG TABLET 1 TAB PO DAILY AC THYROID (Reported) Pyridoxine HCl (Vitamin B-6) 50 MG TABLET 1 TAB PO DAILY VITAMIN SUPPORT ( Reported) Simvastatin (Zocor*) 20 MG TABLET 1 TAB PO DAILY CHOLESTEROL (Reported) Telmisartan (Micardis) 80 MG TABLET 1 TAB PO DAILY HEART (Reported) Current Medications: Current Medications Sig/Lonnie Start time Last Medication Dose Route Stop Time Status Admin Acetaminophen 650 MG .STK-MED ONE 04/06 2137 DC PO 04/ 2138 Acetaminophen 650 MG Q8P PRN / 1445 AC 04 PO 1239 Heparin Sodium 8,700 UNIT ONCE ONE 06/09 0115 DC 06/09 (Porcine) IV 06/09 0116 0118 Heparin Sodium 10,000 UNIT .STK-MED ONE 06/09 0109 DC (Porcine) IV 06/09 0110 Heparin Sodium 8,700 UNIT ONCE ONE 06/08 1615 DC 06/08 (Porcine) IV 06/08 1616 1729 Heparin Sodium 25,000 UNIT Q24H / 1445 AC 06/09 (Porcine) IV 0335 Sodium Chloride 500 ML Ibuprofen 400 MG Q6P PRN 06/08 1215 AC 06/08 PO 2243 Insulin Aspart 0 TIDAC 04 1200 AC 06/09 SC 0904 Insulin Detemir 30 UNITS DAILY 06/09 1000 AC 06/09 SC 0904 Insulin Detemir 20 UNITS AT BEDTIME 06/08 2200 AC 06/08 SC 2134 Insulin Detemir 20 UNITS BID 06/08 1000 DC 06/08 SC 0945 Levothyroxine Sodium 0.2 MG DAILY AC 06/07 1039 AC 04 PO 0546 Losartan Potassium 100 MG DAILY 06/08 1000 AC 06/09 PO 0904 Patient Medication 1 ED ONE ONE 06/08 1430 DC / Teaching ED 06/08 1431 1729 Simethicone 80 MG Q4P PRN / 1300 AC 04 PO 2242 Tramadol HCl 50 MG Q4P PRN 04/ 1345 AC 06/09 PO 1024 Past History Medical History Blood Transfusion Hx: No Neurological: migraine EENT: sinusitis Cardiovascular: hypertension, hyperlipidemia Respiratory: obstructive sleep apnea Gastrointestinal: diverticulitis, irritable bowel syndrome, POLYPS (BENIGN) Hepatic: NONE Renal: nephrolithiasis Musculoskeletal: fibromyalgia, osteoarthritis Psychiatric: chronic pain disorder Endocrine: diabetes, hypothyroidism Blood Disorders: anemia Cancer(s): 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 Home Smoking Status: Former Smoker ETOH Use: occasional use Illicit Drug Use: denies illicit drug use Review of Systems Review of Systems Constitutional: Reports: see HPI. EENTM: Denies: no symptoms. Cardiovascular: Denies: no symptoms. Respiratory: Reports: short of breath. Musculoskeletal: Denies: no symptoms. Skin: Denies: no symptoms. Neurological/Psychological: Denies: no symptoms. Hematologic/Endocrine: Denies: no symptoms. Immunologic/Allergic: Denies: no symptoms. Exam & Diagnostic Data Vital Signs and I&O Vital Signs Date Time Temp Pulse Resp B/P B/P Pulse O2 O2 Flow FiO2 Mean Ox Delivery Rate 06/09 1239 100.9 06/09 0904 145/79 06/09 0658 97.9 84 20 145/79 94 Room Air 06/09 0045 98.5 04 0000 CPAP 06/08 2243 100.5 06/08 2243 100.5 06/08 2201 100.4 102 20 139/81 92 CPAP 06/08 2142 100.4 06/08 2138 100.4 06/08 1413 99.6 114 20 140/82 92 Room Air Intake & Output 06/09 1600 06/09 0800 06/09 0000 06/08 1600 06/08 0800 06/08 0000 Intake Total 842.7 1080.8 286.4 720 350 Output Total 400 200 Balance 442.7 1080.8 286.4 520 350 Intake, IV 362.7 360.8 286.4 200 Intake, Oral 480 720 720 150 Number 0 0 Bowel Movements Output, Urine 400 200 Patient 116.176 kg Weight Physical Exam: PERRL, EOMI RR CTA-B Abd: obese, nontender Ext: ARENAS, no edema. Palpable pedal pulses Neuro: A+Ox3. No motor or sensory deficit Last 24 Hours of Labs: Laboratory Tests 06/09 06/08 06/08 0642 2244 1420 Coagulation PT (9.4 - 12.5 SEC) 16.6 H INR (0.90 - 1.19) 1.52 H APTT (25 - 37 SEC) 87 H 40 H 29 Hematology CBC w Diff NO MAN DIFF REQ WBC (4.8 - 10.8 /CUMM) 12.8 H RBC (4.20 - 5.40 /CUMM) 3.42 L Hgb (12.0 - 16.0 G/DL) 8.6 L Hct (37 - 47 %) 26.8 L MCV (81.0 - 99.0 FL) 78.4 L MCH (27.0 - 31.0 PG) 25.1 L MCHC (33.0 - 37.0 G/DL) 32.0 L RDW (11.5 - 14.5 %) 15.1 H Plt Count (130 - 400 /CUMM) 270 MPV (7.4 - 10.4 FL) 10.3 Gran % (42.2 - 75.2 %) 67.4 Lymphocytes % (20.5 - 51.1 %) 17.4 L Monocytes % (1.7 - 9.3 %) 10.8 H Eosinophils % (0 - 5 %) 4.0 Basophils % (0.0 - 2.0 %) 0.4 Absolute Granulocytes (1.4 - 6.5 /CUMM) 8.6 H Absolute Lymphocytes (1.2 - 3.4 /CUMM) 2.2 Absolute Monocytes (0.10 - 0.60 /CUMM) 1.4 H Absolute Eosinophils (0.0 - 0.7 /CUMM) 0.5 Absolute Basophils (0.0 - 0.2 /CUMM) 0 Imaging Results: CT chest/abd/pelvis images reviewed by me. No clear evidence of PE. Mass in pancreatic body with surrounding lymphadenopathy and splenic vein thrombosis. SMV patent. Portal vein is patent central to conflulence with splenic vein. 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 Recommend anticoagulation to decrease risk of thrombus propagation. I do not see clear evidence of PE, so IVC filter is not indicated at this time. Given that she may have active malignancy, Lovenox provides superior survival compared to warfarin. Its survival advantage compared to NOACs is not known. Surveillance CT in 1 month to evaluate for splenic vein recanalization, or sooner if she develops jaundice or evidence of hepatic insufficiency. Consult Acknowledgment - Thank you for your consult request. Attending MD Review Statement Attending Statement Attending MD Statement: examined this patient
[2017-06-09 14:38] VITALS: BP 172/88
[2017-06-09 22:39] LABS: PTT 37 SEC (25-37)
[2017-06-09 23:12] VITALS: BP 143/79
[2017-06-10 06:04] LABS: PT 16.3 SEC (9.4-12.5); PTT 94 SEC (25-37)
[2017-06-10 06:32] VITALS: BP 153/80
[2017-06-10 08:13] LABS: ABSOLUTE BASOPHIL COUNT 0 /CUMM (0.0-0.2); ABSOLUTE EOSINOPHIL COUNT 0.3 /CUMM (0.0-0.7); ABSOLUTE GRANULOCYTE CT 8.3 /CUMM (1.4-6.5); ABSOLUTE LYMPH COUNT 2.2 /CUMM (1.2-3.4); ABSOLUTE MONOCYTE COUNT 1.3 /CUMM (0.10-0.60); BASOPHIL % 0.3 % (0.0-2.0); EOSINOPHIL % 2.2 % (0-5); GRANULOCYTE % 68.6 % (42.2-75.2); HEMATOCRIT 24.9 % (37-47); MEAN CORPUSCULAR HGB 25.3 PG (27.0-31.0); MEAN CORPUSCULAR HGB CONC 32.3 G/DL (33.0-37.0); MEAN CORPUSCULAR VOLUME 78.3 FL (81.0-99.0); MEAN PLATELET VOLUME 9.8 FL (7.4-10.4); PLATELET COUNT 275 /CUMM (130-400); RBC DISTRIBUTION WIDTH 15.4 % (11.5-14.5); RED BLOOD CELL CT 3.18 /CUMM (4.20-5.40); WHITE BLOOD CELL COUNT 12.1 /CUMM (4.8-10.8)
--- NOTE | 2017-06-10 08:19 | PN- Housestaff ---
See Addendum Subjective Follow-up For: Likely pancreatic cancer with mets Subjective: She had fever yesterday evening to 101.4 and subsequently defervesced. This morning, she is complaining of her sugars being very high and causing her to be constipated have blurry vision. She would like her insulin dose increased. She is also a little nervous about experiencing pain during the liver biopsy but says she'll be okay if they put her under. Otherwise, no chest pain, shortness of breath, or other issues. Her pain is well-controlled. Review of Systems Constitutional: Reports: no symptoms. EENTM: Reports: no symptoms. Cardiovascular: Reports: no symptoms. Respiratory: Reports: no symptoms. Gastrointestinal: Reports: no symptoms. Genitourinary: Reports: no symptoms. Musculoskeletal: Reports: no symptoms. Skin: Reports: no symptoms. Neurological/Psychological: Reports: no symptoms. Hematologic/Endocrine: Reports: see HPI. Immunologic/Allergic: Reports: no symptoms. Objective Last 24 Hrs of Vital Signs/I&O Vital Signs Date Time Temp Pulse Resp B/P B/P Pulse O2 O2 Flow FiO2 Mean Ox Delivery Rate 06/10 0532 98.3 87 18 153/80 92 CPAP 06/10 0000 CPAP 06/09 2345 99.6 06/09 2342 99.6 06/09 2312 101.4 110 20 143/79 94 Room Air 06/09 2200 101.4 06/09 2158 101.4 06/09 1934 102.0 06/09 1931 102.0 06/09 1438 100.9 81 20 172/88 96 Room Air 06/09 1239 100.9 06/09 0904 145/79 Intake & Output 06/10 1600 06/10 0800 06/10 0000 Intake Total 716.6 357.6 Output Total Balance 716.6 357.6 Intake, IV 476.6 237.6 Intake, Oral 240 120 Number 0 0 Bowel Movements Patient 116.318 kg Weight Weight Bed scale Measurement Method Physical Exam General Appearance: Alert, Oriented X3, Cooperative, No Acute Distress Cardiovascular: Regular Rate, Normal S1, Normal S2 Lungs: Clear to Auscultation Abdomen: Normal Bowel Sounds, Soft, No Tenderness Extremities: No Edema, Normal Pulses, No Tenderness/Swelling Current Medications: Current Medications Sig/Lonnie Start time Last Medication Dose Route Stop Time Status Admin Acetaminophen 650 MG .STK-MED ONE 06/09 2148 DC PO 06/09 2149 Acetaminophen 650 MG .STK-MED ONE 06/09 1239 DC PO 06/09 1240 Acetaminophen 650 MG Q8P PRN 06/07 1445 AC 06/09 PO 2158 Docusate Sodium 100 MG DAILY NEEDED PRN 06/10 0500 AC PO Heparin Sodium 10,000 UNIT .STK-MED ONE 06/09 2326 DC (Porcine) IV 06/09 2327 Heparin Sodium 8,700 UNIT ONCE ONE 06/09 2315 DC 06/09 (Porcine) IV 06/09 2316 2335 Heparin Sodium 25,000 UNIT Q24H 06/07 1445 AC 06/10 (Porcine) IV 0631 Sodium Chloride 500 ML Ibuprofen 400 MG Q6P PRN 06/08 1215 AC 06/09 PO 1934 Insulin Aspart 0 TIDAC 06/07 1200 AC 06/10 SC 0754 Insulin Detemir 30 UNITS DAILY 06/09 1000 AC 06/09 SC 0904 Insulin Detemir 20 UNITS AT BEDTIME 06/08 2200 AC 06/09 SC 2157 Levothyroxine Sodium 0.2 MG DAILY AC 06/07 1039 AC 06/10 PO 0534 Losartan Potassium 100 MG DAILY 06/08 1000 AC 06/09 PO 0904 Senna 187 MG AT BEDTIME 06/10 2200 AC PO Simethicone 80 MG Q4P PRN 06/08 1300 AC 06/08 PO 2242 Tramadol HCl 50 MG Q4P PRN 06/07 1345 AC 06/10 PO 0451 Last 24 Hrs of Lab/Maco Results Last 24 Hrs of Labs/Mics: Laboratory Tests 06/10/17 0716: Total Bilirubin Pending, Direct Bilirubin Pending, AST Pending, ALT Pending, Alkaline Phosphatase Pending, Total Protein Pending, Albumin Pending, CBC w Diff Pending, WBC Pending, RBC Pending, Hgb Pending, Hct Pending, MCV Pending, MCH Pending, MCHC Pending, RDW Pending, Plt Count Pending, MPV Pending 06/10/17 0600: PT Cancelled, INR Cancelled 06/10/17 0540: PT 16.3 H, INR 1.49 H, APTT 94 H 06/09/17 2145: APTT 37 Assessment/Plan Assessment: 57-year-old female with past medical history significant for pulmonary embolism on anticoagulation with apixiban, insulin-dependent diabetes mellitus, hypothyroidism on levothyroxine, hyperlipidemia on statin, hypertension on Telmisartan who presented with fever, anorexia and myalgias. Problem list: 1. Likely pancreatic cancer with metastasis to liver and lung 2. Fever, likely secondary to malignancy 3. Recent pulmonary embolism 4. Splenic vein thrombosis #Likely pancreatic cancer with metastasis to liver and lung: Given recent findings of CT scan, it seems like patient has pancreatic cancer with metastasis. After discussing with specialists, plan is to get a liver biopsy on Sunday to confirm the diagnosis. -Appreciate gastroenterology, oncology, surgery recommendations -Liver biopsy on Sunday, nothing by mouth after midnight Sunday -Heparin drip, hold apixiban -Pain control #Splenic vein thrombosis: CT imaging shows hypodense focus within the liver suggesting infarction. Vascular surgery was consulted and said she has splenic vein thrombosis. At this time she is anticoagulated and there is no indication for IVC filter or further intervention. They do recommend having her on enoxaparin long-term versus warfarin given the survival advantage. -Appreciate vascular surgery recommendations #Fever, likely secondary to malignancy: Patient has malignancy with metastasis to liver and recurrent fevers. Infectious disease has been consulted and thinks this is likely secondary to the malignancy. Cultures show no growth. -Acetaminophen for fevers -Follow cultures -Appreciate ID recommendations #Recent pulmonary embolism: Patient was previously on apixiban. This was stopped and she is now being maintained on heparin drip pending liver biopsy on Sunday. -Heparin drip, can consider restarting apixiban after biopsy #Chronic medical conditions: -Continue other home medications -Monitor blood sugars, adjust insulin dose as necessary. DVT prophylaxis with heparin Regular diet Full code Problem List: 1. Fever malignant Pain Ratin Pain Location: no Pain Goal: Remain pain free Pain Plan: see a/p Tomorrow's Labs & Rationales: cbc, bep, lft, inr
[2017-06-10 13:47] VITALS: BP 154/78
[2017-06-10 13:59] LABS: PTT 44 SEC (25-37)
[2017-06-10 21:24] LABS: PTT 95 SEC (25-37)
[2017-06-10 21:42] VITALS: BP 128/74
[2017-06-11 05:13] LABS: ABSOLUTE BASOPHIL COUNT 0 /CUMM (0.0-0.2); ABSOLUTE EOSINOPHIL COUNT 0.2 /CUMM (0.0-0.7); ABSOLUTE GRANULOCYTE CT 10.6 /CUMM (1.4-6.5); ABSOLUTE LYMPH COUNT 2.4 /CUMM (1.2-3.4); ABSOLUTE MONOCYTE COUNT 1.7 /CUMM (0.10-0.60); BASOPHIL % 0.3 % (0.0-2.0); EOSINOPHIL % 1.1 % (0-5); GRANULOCYTE % 70.9 % (42.2-75.2); HEMATOCRIT 25.8 % (37-47); MEAN CORPUSCULAR HGB 24.9 PG (27.0-31.0); MEAN CORPUSCULAR VOLUME 77.8 FL (81.0-99.0); MEAN PLATELET VOLUME 9.1 FL (7.4-10.4); PLATELET COUNT 344 /CUMM (130-400); RBC DISTRIBUTION WIDTH 15.2 % (11.5-14.5); RED BLOOD CELL CT 3.31 /CUMM (4.20-5.40); WHITE BLOOD CELL COUNT 14.9 /CUMM (4.8-10.8)
[2017-06-11 05:22] LABS: PT 15.2 SEC (9.4-12.5); PTT 59 SEC (25-37)
[2017-06-11 06:35] VITALS: BP 164/88
--- NOTE | 2017-06-11 07:07 | PN- Housestaff ---
See Addendum Subjective Follow-up For: Pancreatis mass with liver lesions, fever Subjective: Patient fever to 100.8 last night. She subsequently defervesced. Blood sugars have been in the 200s. She slept well overnight. She had her pain is well- controlled. She'll be going for biopsy today. Review of Systems Constitutional: Reports: see HPI. EENTM: Reports: no symptoms. Cardiovascular: Reports: no symptoms. Respiratory: Reports: no symptoms. Gastrointestinal: Reports: no symptoms. Genitourinary: Reports: no symptoms. Musculoskeletal: Reports: no symptoms. Skin: Reports: no symptoms. Neurological/Psychological: Reports: no symptoms. Hematologic/Endocrine: Reports: no symptoms. Immunologic/Allergic: Reports: no symptoms. Objective Last 24 Hrs of Vital Signs/I&O Vital Signs Date Time Temp Pulse Resp B/P B/P Pulse O2 O2 Flow FiO2 Mean Ox Delivery Rate 06/11 0535 98.3 100 20 164/88 90 CPAP 06/10 2142 99.0 89 18 128/74 97 Room Air 06/10 1511 100.8 06/10 1347 100.7 107 18 154/78 94 Room Air Room Air 06/10 1017 153/80 Intake & Output 06/11 0800 06/11 0000 06/10 1600 Intake Total 0 480 1972 Output Total Balance 0 480 1972 Intake, IV 472 Intake, Oral 0 480 1500 Number 1 0 Bowel Movements Physical Exam General Appearance: Alert, Oriented X3, Cooperative, No Acute Distress Cardiovascular: Regular Rate, Normal S1, Normal S2 Lungs: Clear to Auscultation Extremities: No Edema Current Medications: Current Medications Sig/Lonnie Start time Last Medication Dose Route Stop Time Status Admin Acetaminophen 650 MG Q8P PRN 06/07 1445 AC 06/09 PO 2158 Docusate Sodium 100 MG DAILY NEEDED PRN 06/10 0500 AC 06/10 PO 1021 Heparin Sodium 10,000 UNIT .STK-MED ONE 06/10 1721 DC (Porcine) IV 06/10 1722 Heparin Sodium 8,550 UNIT ONE ONE 06/10 1430 DC 06/10 (Porcine) IV 06/10 1431 1725 Heparin Sodium 25,000 UNIT Q24H 06/07 1445 DC 06/10 (Porcine) IV 06/11 0400 2155 Sodium Chloride 500 ML Ibuprofen 400 MG Q6P PRN 06/08 1215 AC 06/10 PO 1511 Insulin Aspart 0 TIDAC 06/07 1200 DC 06/10 SC 1725 Insulin Detemir 25 UNITS AT BEDTIME 06/10 2200 AC 06/10 SC 2121 Insulin Detemir 40 UNITS DAILY 06/10 1000 AC 06/10 SC 1017 Insulin Detemir 30 UNITS DAILY 06/09 1000 DC 06/09 SC 0904 Insulin Detemir 20 UNITS AT BEDTIME 06/08 2200 DC 06/09 OR 2157 Insulin Human Regular 0 Q6 06/11 1200 UNVr SC Levothyroxine Sodium 0.2 MG DAILY AC 06/07 1039 AC 06/11 PO 0541 Losartan Potassium 100 MG DAILY 06/08 1000 AC 06/10 PO 1017 Senna 187 MG AT BEDTIME 06/10 2200 AC 06/10 PO 2120 Simethicone 80 MG Q4P PRN 06/08 1300 AC 06/08 PO 2242 Tramadol HCl 50 MG Q4P PRN 06/07 1345 AC 06/10 PO 2159 Last 24 Hrs of Lab/Maco Results Last 24 Hrs of Labs/Mics: Laboratory Tests 06/11/17 0600: PT Cancelled, INR Cancelled 06/11/17 0450: Anion Gap 12, Estimated GFR > 60, BUN/Creatinine Ratio 26.0 H, Total Bilirubin 0.6, Direct Bilirubin 0.5 H, AST 28, ALT 66 H, Alkaline Phosphatase 387 H, Total Protein 6.0 L, Albumin 2.8 L, PT 15.2 H, INR 1.39 H, APTT 59 H, CBC w Diff NO MAN DIFF REQ, RBC 3.31 L, MCV 77.8 L, MCH 24.9 L, MCHC 32.0 L, RDW 15.2 H, MPV 9.1, Gran % 70.9, Lymphocytes % 16.2 L, Monocytes % 11.5 H, Eosinophils % 1.1, Basophils % 0.3, Absolute Granulocytes 10.6 H, Absolute Lymphocytes 2.4, Absolute Monocytes 1.7 H, Absolute Eosinophils 0.2, Absolute Basophils 0 06/10/176: APTT 95 H 06/10/17 1240: APTT 44 H 06/10/17 0716: Total Bilirubin 0.7, Direct Bilirubin 0.5 H, AST 23, ALT 73 H, Alkaline Phosphatase 301 H, Total Protein 5.6 L, Albumin 2.5 L, CBC w Diff NO MAN DIFF REQ, RBC 3.18 L, MCV 78.3 L, MCH 25.3 L, MCHC 32.3 L, RDW 15.4 H, MPV 9.8, Gran % 68.6, Lymphocytes % 18.0 L, Monocytes % 10.9 H, Eosinophils % 2.2, Basophils % 0.3, Absolute Granulocytes 8.3 H, Absolute Lymphocytes 2.2, Absolute Monocytes 1.3 H, Absolute Eosinophils 0.3, Absolute Basophils 0 Assessment/Plan Assessment: 57-year-old female with past medical history significant for pulmonary embolism on anticoagulation with apixiban, insulin-dependent diabetes mellitus, hypothyroidism on levothyroxine, hyperlipidemia on statin, hypertension on Telmisartan who presented with fever, anorexia and myalgias. Problem list: 1. Likely pancreatic cancer with metastasis to liver and lung 2. Fever, likely secondary to malignancy 3. Recent pulmonary embolism 4. Splenic vein thrombosis #Likely pancreatic cancer with metastasis to liver and lung: Given recent findings of CT scan, it seems like patient has pancreatic cancer with metastasis. The plan was for her to get a liver biopsy today. Unfortunately she received ibuprofen yesterday and this precludes her from getting the biopsy today. We will plan now to discharge her today and have her follow up for outpatient liver biopsy. She will have to be without ibuprofen for 3 days prior to the biopsy and without enoxaparin for 2 days prior to biopsy. -Appreciate gastroenterology, oncology, surgery recommendations -Outpatient liver biopsy -Enoxaparin -Pain control #Splenic vein thrombosis: CT imaging shows hypodense focus within the liver suggesting infarction. Vascular surgery was consulted and said she has splenic vein thrombosis. At this time she is anticoagulated and there is no indication for IVC filter or further intervention. They do recommend having her on enoxaparin long-term versus warfarin given the survival advantage. -Appreciate vascular surgery recommendations #Fever, likely secondary to malignancy: Patient has malignancy with metastasis to liver and recurrent fevers. Infectious disease has been consulted and thinks this is likely secondary to the malignancy. Cultures show no growth. -Acetaminophen for fevers -Follow cultures -Appreciate ID recommendations #Recent pulmonary embolism: Patient was previously on apixiban. -See above #Chronic medical conditions: -Continue other home medications -Monitor blood sugars, adjust insulin dose as necessary. DVT prophylaxis with heparin Regular diet Full code Problem List: 1. Fever malignant Pain Ratin Pain Location: no Pain Goal: Remain pain free Pain Plan: see a/p Tomorrow's Labs & Rationales: no
[2017-06-11] MEDS ORDERED: LOVENOX40 MG/0.1 SC (10:41)
--- NOTE | 2017-06-11 10:46 | Patient Discharge Instructions ---
Discharge Instructions General Discharge Information You were seen/treated for: Pancreatic mass with liver lesions and fever Watch for these problems: Chest pain, shortness of breath Special Instructions: Please take all medications as directed. Please follow-up with primary care, gastroenterology, and oncology. Diet Continue normal diet: Yes Activity Full Activity/No Limits: Yes Acute Coronary Syndrome Inclusion Criteria At DC or during hospital stay patient has or had the following: ACS DIAGNOSIS No Discharge Core Measures Meds if any: Prescribed or Continued at Discharge Meds if any: NOT Prescribed or Continued at Discharge Congestive Heart Failure Inclusion Criteria At DC or during hospital stay patient has or had the following: CHF DIAGNOSIS No Discharge Core Measures Meds if any: Prescribed or Continued at Discharge Meds if any: NOT Prescribed or Continued at Discharge Cerebrovascular accident Inclusion Criteria At DC or during hospital stay patient has or had the following: CVA/TIA Diagnosis No Discharge Core Measures Meds if any: Prescribed or Continued at Discharge Meds if any: NOT Prescribed or Continued at Discharge Venous thromboembolism Inclusion Criteria VTE Diagnosis No VTE Type NONE VTE Confirmed by (Test) NONE Discharge Core Measures - Per Current guidelines, there needs to be overlap - treatment for the first 5 days of Warfarin therapy. - If discharged on Warfarin prior to 5 days of - overlap therapy, the patient will need to be - assessed for post discharge needs including - *Post discharge parental anticoagulation - *Warfarin and/or parental anticoagulation education - *Follow up date to check INR post discharge At least 5 days overlap therapy as Inpatient No Meds if any: Prescribed or Continued at Discharge Note: Overlap Therapy is Warfarin and Anticoagulant Meds if any: NOT Prescribed or Continued at Discharge Meds if any: Prescribed or Continued at Discharge Note: Overlap Therapy is Warfarin and Anticoagulant Meds if any: NOT Prescribed or Continued at Discharge
--- NOTE | 2017-06-11 10:47 | Discharge Summary ---
Visit Information Visit Dates Admission Date: 06/07/17 Discharge Date: 06/15/17 Hospital Course Course Attending Physician: Laura Griffin MD Primary Care Physician: Armando Bailey MD Hospital Course: 57-year-old female with past medical history significant for pulmonary embolism on anticoagulation with apixiban, insulin-dependent diabetes mellitus, hypothyroidism on levothyroxine, hyperlipidemia on statin, hypertension on Telmisartan who presented with fever, anorexia and myalgias. Problem list: 1. Likely pancreatic cancer with metastasis to liver and lung 2. Fever, likely secondary to malignancy 3. Recent pulmonary embolism 4. Splenic vein thrombosis 5. Acute hypoxic respiratory failure #Likely pancreatic cancer with metastasis to liver and lung: Given recent findings of CT scan, it seems like patient has pancreatic cancer with metastasis. She had liver biopsy and will follow-up with oncology for the results. Her anticoagulation was subsequently restarted and she should follow-up with Dr. Bustillo and gastroenterology as well. #Splenic vein thrombosis: CT imaging showed hypodense focus within the liver suggesting infarction. Vascular surgery was consulted and said she has splenic vein thrombosis. At this time she is anticoagulated and there is no indication for IVC filter or further intervention. #Fever, likely secondary to malignancy: Patient has malignancy with metastasis to liver and recurrent fevers. Infectious disease has been consulted and thinks this is likely secondary to the malignancy. Cultures show no growth. She can treat her fevers with acetaminophen and NSAIDs. #Recent pulmonary embolism: The patient is anticoagulated was held for the liver biopsy and was subsequently restarted. #Acute hypoxic respiratory failure: Patient noted to desaturate on room air while ambulating. She'll be going home on home oxygen. Unclear etiology but may be related to her pulmonary embolisms. #Chronic medical conditions: Her other home medications were continued. Allergies: Coded Allergies: cefaclor (From CECLOR) (UNKNOWN 06/07/17) pseudoephedrine (From ACTIFED) (UNKNOWN 06/07/17) triprolidine (From ACTIFED) (UNKNOWN 06/07/17) Disposition Summary Disposition Principal Diagnosis: 1. Likely pancreatic cancer with metastasis to liver and lung Additional Diagnosis: 2. Fever, likely secondary to malignancy 3. Recent pulmonary embolism 4. Splenic vein thrombosis 5. Acute hypoxic respiratory failure Discharge Disposition: home or self care Discharge Instructions General Discharge Information Code Status: Full Code Patient's Diet: Diabetc Patient's Activity: As tolerated Follow-Up Instructions/Appts: Please take all medications as directed. Please follow-up with primary care, gastric gastroneurology, and oncology. Medications at Discharge Discharge Medications: Stop taking the following medications: Ciprofloxacin HCl (Cipro) 500 MG TABLET ORAL TWICE DAILY Continue taking these medications: Levothyroxine Sodium (Levothyroxine Sodium) 200 MCG TABLET 1 Tablet ORAL DAILY BEFORE BREAKFAST Comments: Last Taken: 06/15/17 Time: 6 am Apixaban (Eliquis) 5 MG TABLET 1 Tablet ORAL TWICE DAILY Comments: Last Taken: 06/15/17 Time: 1 PM Insulin Glargine,Hum.rec.anlog (Lantus Solostar) 100 UNIT/ML (3 ML) INSULN.PEN 80 Unit Inject into fatty tissue DAILY Comments: received Novolog at 1035 on 06/15 Insulin Glargine,Hum.rec.anlog (Lantus Solostar) 100 UNIT/ML (3 ML) INSULN.PEN 25 Unit Inject into fatty tissue Every night Comments: received levemir at 950 pm on 06/14 Simvastatin (Zocor*) 20 MG TABLET 1 Tablet ORAL DAILY Telmisartan (Micardis) 80 MG TABLET 1 Tablet ORAL DAILY Comments: received cozaar at 1036 am on 06/15 L-Methylfolate (Deplin-Algal Oil 15 MG Capsule) 15 MG-90.314 MG CAPSULE 1 Capsule ORAL DAILY Pyridoxine HCl (Vitamin B-6) 50 MG TABLET 1 Tablet ORAL DAILY Cyanocobalamin (Vitamin B-12) 1,000 MCG TABLET 1 Tablet ORAL DAILY Copies To: Lynn SINGER,Armando Johnson; Rinku SINGER,Clem Giraldo; Keny SINGER,Merna; Natalie SINGER,Narinder Guzman; Varun SINGER,Pedro Bro; Payam SINGER,Boo Johnson
[2017-06-11 14:22] VITALS: BP 140/78
--- NOTE | 2017-06-11 15:27 | PN- Infect Dx ---
Subjective Subjective: MAXIMUM TEMPERATURE 101.2. She does not offer any complaints but is frustrated about the need to further delay her liver biopsy because she was given Ibuprofen yesterday afternoon. Objective Last 24 Hrs of Vital Signs/I&O Vital Signs Date Time Temp Pulse Resp B/P B/P Pulse O2 O2 Flow FiO2 Mean Ox Delivery Rate 06/11 1422 101.2 109 20 140/78 91 Room Air 06/11 08 100 164/88 06/11 0635 98.3 100 20 164/88 90 CPAP 06/10 2142 99.0 89 18 128/74 97 Room Air Intake & Output 06/11 1600 06/11 0800 06/11 0000 Intake Total 1578 0 480 Output Total Balance 1578 0 480 Intake, IV 78 Intake, Oral 1500 0 480 Number 0 1 Bowel Movements Patient 262 lb Weight Weight Bed scale Measurement Method Physical Exam Other Physical Findings: She is frustrated and discouraged but in no acute distress Exam is unchanged Results Last 24 Hours of Lab Results: Laboratory Tests 06/11 06/11 06/10 0600 0450 2036 Chemistry Sodium (137 - 145 mmol/L) 138 Potassium (3.5 - 5.1 mmol/L) 3.6 Chloride (98 - 107 mmol/L) 96 L Carbon Dioxide (22 - 30 mmol/L) 30 Anion Gap (5 - 16) 12 BUN (7 - 17 mg/dL) 13 Creatinine (0.5 - 1.0 mg/dL) 0.5 Estimated GFR (>60 ml/min) > 60 BUN/Creatinine Ratio (7 - 25 %) 26.0 H Total Bilirubin (0.2 - 1.3 mg/dL) 0.6 Direct Bilirubin (< 0.4 mg/dL) 0.5 H AST (14 - 36 U/L) 28 ALT (9 - 52 U/L) 66 H Alkaline Phosphatase (<127 U/L) 387 H Total Protein (6.3 - 8.2 g/dL) 6.0 L Albumin (3.5 - 5.0 g/dL) 2.8 L Coagulation PT (9.4 - 12.5 SEC) Cancelled 15.2 H INR (0.90 - 1.19) Cancelled 1.39 H APTT (25 - 37 SEC) 59 H 95 H Hematology CBC w Diff NO MAN DIFF REQ WBC (4.8 - 10.8 /CUMM) 14.9 H RBC (4.20 - 5.40 /CUMM) 3.31 L Hgb (12.0 - 16.0 G/DL) 8.2 L Hct (37 - 47 %) 25.8 L MCV (81.0 - 99.0 FL) 77.8 L MCH (27.0 - 31.0 PG) 24.9 L MCHC (33.0 - 37.0 G/DL) 32.0 L RDW (11.5 - 14.5 %) 15.2 H Plt Count (130 - 400 /CUMM) 344 MPV (7.4 - 10.4 FL) 9.1 Gran % (42.2 - 75.2 %) 70.9 Lymphocytes % (20.5 - 51.1 %) 16.2 L Monocytes % (1.7 - 9.3 %) 11.5 H Eosinophils % (0 - 5 %) 1.1 Basophils % (0.0 - 2.0 %) 0.3 Absolute Granulocytes (1.4 - 6.5 /CUMM) 10.6 H Absolute Lymphocytes (1.2 - 3.4 /CUMM) 2.4 Absolute Monocytes (0.10 - 0.60 /CUMM) 1.7 H Absolute Eosinophils (0.0 - 0.7 /CUMM) 0.2 Absolute Basophils (0.0 - 0.2 /CUMM) 0 Last 24 Hours of Maco Results: No recent cultures Assessment/Plan ID Impression: Fevers and leukocytosis persist and are most likely secondary to her presumed metastatic disease to the liver, with no evidence of any infectious process and with her cultures negative. Her liver biopsy has now been deferred until until June 14 because she received a dose of Ibuprofen yesterday afternoon. She is otherwise stable; therefore she can continue to be followed off antibiotics. Suggestion: 1. Await liver biopsy 2. Continue to follow off antibiotics pending above
[2017-06-11 19:10] LABS: PTT 30 SEC (25-37)
[2017-06-11 21:54] VITALS: BP 141/72
[2017-06-12 02:19] LABS: PTT 36 SEC (25-37)
[2017-06-12 07:09] VITALS: BP 152/84
--- NOTE | 2017-06-12 07:24 | PN- Housestaff ---
See Addendum Subjective Follow-up For: Pancreatic mass with liver lesions Subjective: Patient had fever again this morning with some relief from the acetaminophen. She is complaining of constipation, has not had a bowel movement in 3 days. She would like a Fleet enema. Otherwise, she has no other complaints. Review of Systems Constitutional: Reports: see HPI. EENTM: Reports: no symptoms. Cardiovascular: Reports: no symptoms. Respiratory: Reports: no symptoms. Gastrointestinal: Reports: see HPI. Genitourinary: Reports: no symptoms. Musculoskeletal: Reports: no symptoms. Skin: Reports: no symptoms. Neurological/Psychological: Reports: no symptoms. Hematologic/Endocrine: Reports: no symptoms. Immunologic/Allergic: Reports: no symptoms. Objective Last 24 Hrs of Vital Signs/I&O Vital Signs Date Time Temp Pulse Resp B/P B/P Pulse O2 O2 Flow FiO2 Mean Ox Delivery Rate 06/12 708 100.2 98 20 152/84 90 CPAP 06/12 0000 CPAP 06/11 2154 99.9 100 20 141/72 91 CPAP 06/11 2100 99.6 06/11 1944 102.8 06/11 1936 102.8 06/11 1600 99.3 06/11 1422 101.2 109 20 140/78 91 Room Air 06/11 0826 100 164/88 Intake & Output 06/12 0800 06/12 0000 06/11 1600 Intake Total 611 023 8198 Output Total Balance 364 400 7517 Intake, IV 360 208 78 Intake, Oral 480 1500 Number 0 Bowel Movements Patient 118.841 kg Weight Weight Bed scale Measurement Method Physical Exam General Appearance: Alert, Oriented X3, Cooperative, No Acute Distress Cardiovascular: Regular Rate, Normal S1, Normal S2 Lungs: Clear to Auscultation Abdomen: Normal Bowel Sounds, Soft, mild tenderness Extremities: Normal Pulses Current Medications: Current Medications Sig/Lonnie Start time Last Medication Dose Route Stop Time Status Admin Acetaminophen 650 MG .STK-MED ONE 06/11 1937 DC PO 06/11 1938 Acetaminophen 650 MG Q8P PRN 06/07 1445 AC 06/12 PO 0545 Bisacodyl 10 MG ONCE ONE 06/11 2114 DC 06/12 DC 06/12 2115 0419 Bisacodyl 5 MG DAILY PRN 06/11 1545 AC 06/11 PO 1806 Docusate Sodium 100 MG .STK-MED ONE 06/11 1806 DC PO 06/11 1807 Docusate Sodium 100 MG DAILY NEEDED PRN 06/10 0500 AC 06/11 PO 1807 Enoxaparin Sodium 120 MG BID 06/11 1038 DC SC Heparin Sodium 8,900 UNIT ONCE ONE 06/12 0300 DC 06/12 (Porcine) IV 06/12 0301 0259 Heparin Sodium 8,900 UNIT ONCE ONE 06/11 2014 DC 06/11 (Porcine) IV 06/11 Heparin Sodium 10,000 UNIT .STK-MED ONE 06/11 1941 DC (Porcine) IV 06/11 194 Heparin Sodium 25,000 UNIT Q24H 06/11 1100 AC 06/12 (Porcine) IV 0249 Sodium Chloride 500 ML Ibuprofen 400 MG Q6P PRN 06/08 1215 DC 06/10 PO 1511 Insulin Aspart 0 TIDAC 06/11 1200 AC 06/11 SC 1806 Insulin Detemir 50 UNITS DAILY 06/12 1000 AC SC Insulin Detemir 30 UNITS AT BEDTIME 06/11 2200 AC 06/11 SC 2143 Insulin Detemir 25 UNITS AT BEDTIME 06/10 2200 DC 06/10 SC 2121 Insulin Detemir 40 UNITS DAILY 06/10 1000 DC 06/11 SC 0827 Insulin Human Regular 0 Q6 06/11 1200 CAN SC Levothyroxine Sodium 0.2 MG DAILY AC 06/07 1039 AC 06/12 PO 0418 Losartan Potassium 100 MG DAILY 06/08 1000 AC 06/11 PO 0826 Senna 187 MG AT BEDTIME 06/10 2200 AC 06/11 PO 2141 Simethicone 80 MG Q4P PRN 06/08 1300 AC 06/11 PO 1325 Sodium Phosphate 1 UNIT ONCE ONE 06/12 0730 UNVr DC 06/12 0731 Tramadol HCl 50 MG Q4P PRN 06/07 1345 AC 06/11 PO 1326 Last 24 Hrs of Lab/Maco Results Last 24 Hrs of Labs/Mics: Laboratory Tests 06/12/17 0135: APTT 36 06/11/17 1835: APTT 30 Assessment/Plan Assessment: 57-year-old female with past medical history significant for pulmonary embolism on anticoagulation with apixiban, insulin-dependent diabetes mellitus, hypothyroidism on levothyroxine, hyperlipidemia on statin, hypertension on Telmisartan who presented with fever, anorexia and myalgias. Problem list: 1. Likely pancreatic cancer with metastasis to liver and lung 2. Fever, likely secondary to malignancy 3. Recent pulmonary embolism 4. Splenic vein thrombosis #Likely pancreatic cancer with metastasis to liver and lung: Given recent findings of CT scan, it seems like patient has pancreatic cancer with metastasis. The plan was for her to get a liver biopsy today. Unfortunately she received ibuprofen and this precludes her from getting the biopsy until . We were initially planning to discharge her yesterday and have her come back to the biopsy but upon further evaluation, her risk of blood clot is too high and so she will stay in the hospital for the biopsy. -Appreciate gastroenterology, oncology, surgery recommendations -liver biopsy -Continue heparin drip, discontinue at 0400 on 06/14/2017 -Nothing by mouth after midnight for -Pain control -No NSAIDs #Splenic vein thrombosis: CT imaging shows hypodense focus within the liver suggesting infarction. Vascular surgery was consulted and said she has splenic vein thrombosis. At this time she is anticoagulated and there is no indication for IVC filter or further intervention. They do recommend having her on enoxaparin long-term versus warfarin given the survival advantage. -Appreciate vascular surgery recommendations #Fever, likely secondary to malignancy: Patient has malignancy with metastasis to liver and recurrent fevers. Infectious disease has been consulted and thinks this is likely secondary to the malignancy. Cultures show no growth. -Acetaminophen for fevers -Follow cultures -Appreciate ID recommendations #Recent pulmonary embolism: Patient was previously on apixiban. -See above #Chronic medical conditions: -Continue other home medications -Monitor blood sugars, adjust insulin dose as necessary. DVT prophylaxis with heparin Regular diet Full code Problem List: 1. Fever malignant Pain Ratin Pain Location: gi Pain Goal: Remain pain free Pain Plan: see a/p Tomorrow's Labs & Rationales: cbc, bep, inr
[2017-06-12 09:19] LABS: PTT 56 SEC (25-37)
[2017-06-12 14:09] VITALS: BP 132/52
[2017-06-12 16:20] LABS: PTT 38 SEC (25-37)
[2017-06-12 21:00] VITALS: BP 168/92
[2017-06-12 23:10] VITALS: BP 168/92
[2017-06-13 01:49] LABS: PTT 70 SEC (25-37)
[2017-06-13 06:54] VITALS: BP 149/86
--- NOTE | 2017-06-13 07:03 | PN- Housestaff ---
See Addendum Subjective Follow-up For: pancreatic mass with liver/lung lesions Subjective: Patient had fever to 102.6 last night. She subsequently defervesced. She slept well however. She is not eating well but she did have a bowel movement yesterday. Her abdominal pain is a little improved today. No other issues. Review of Systems Constitutional: Reports: see HPI. EENTM: Reports: no symptoms. Cardiovascular: Reports: no symptoms. Respiratory: Reports: no symptoms. Gastrointestinal: Reports: see HPI. Genitourinary: Reports: no symptoms. Musculoskeletal: Reports: no symptoms. Skin: Reports: no symptoms. Neurological/Psychological: Reports: no symptoms. Hematologic/Endocrine: Reports: no symptoms. Immunologic/Allergic: Reports: no symptoms. Objective Last 24 Hrs of Vital Signs/I&O Vital Signs Date Time Temp Pulse Resp B/P B/P Pulse O2 O2 Flow FiO2 Mean Ox Delivery Rate 06/13 0242 98.4 06/13 0000 CPAP 06/12 2203 101.0 06/12 2147 101.0 06/12 2100 102.6 101 20 168/92 94 CPAP 06/12 2054 102.6 06/12 1519 100.4 06/12 1409 99.8 99 18 132/52 93 Room Air 06/12 1346 99.7 06/12 1112 99.6 92 Room Air 06/12 0908 98 152/84 06/12 0709 100.2 98 20 152/84 90 CPAP Intake & Output 06/13 0800 06/13 0000 06/12 1600 Intake Total 240 799 788.2 Output Total Balance 240 799 788.2 Intake, IV 319 388.2 Intake, Oral 240 480 400 Patient 119.04 kg Weight Physical Exam General Appearance: Alert, Oriented X3, Cooperative, No Acute Distress Cardiovascular: Regular Rate, Normal S1, Normal S2 Lungs: Clear to Auscultation Abdomen: Normal Bowel Sounds, Soft, No Tenderness Extremities: No Edema, Normal Pulses, No Tenderness/Swelling Current Medications: Current Medications Sig/Lonnie Start time Last Medication Dose Route Stop Time Status Admin Acetaminophen 1,000 MG .STK-MED ONE 06/12 2125 DC IV 06/12 2126 Acetaminophen 650 MG .STK-MED ONE 06/12 2052 DC PO 06/12 2053 Acetaminophen 650 MG .STK-MED ONE 06/12 1349 DC PO 06/12 1350 Acetaminophen 650 MG Q8P PRN 06/07 1445 AC 06/12 PO 2054 Bisacodyl 5 MG DAILY PRN 06/11 1545 AC 06/12 PO 1905 Docusate Sodium 100 MG .STK-MED ONE 06/12 1733 DC PO 06/12 1734 Docusate Sodium 100 MG DAILY NEEDED PRN 06/10 0500 AC 06/12 PO 1735 Guaifenesin 600 MG Q12 06/12 1000 AC 06/12 PO 2047 Heparin Sodium 8,900 UNIT ONCE ONE 06/12 1930 DC 06/12 (Porcine) IV 06/12 1931 1926 Heparin Sodium 10,000 UNIT .STK-MED ONE 06/12 1928 DC (Porcine) IV 06/12 1929 Heparin Sodium 5,000 UNIT .STK-MED ONE 06/12 0959 DC (Porcine) IV 06/12 1000 Heparin Sodium 4,752 UNIT ONCE ONE 06/12 0930 DC 06/12 (Porcine) IV 06/12 0931 1001 Heparin Sodium 25,000 UNIT Q24H 06/11 1100 AC 06/12 (Porcine) IV 06/14 0400 2356 Sodium Chloride 500 ML Insulin Aspart 0 TIDAC 06/11 1200 AC 06/12 SC 1736 Insulin Detemir 50 UNITS DAILY 06/12 1000 AC 06/12 SC 0909 Insulin Detemir 30 UNITS AT BEDTIME 06/11 2200 AC 06/12 SC 2048 Levothyroxine Sodium 0.2 MG DAILY AC 06/07 1039 AC 06/13 PO 0527 Losartan Potassium 100 MG DAILY 06/08 1000 AC 06/12 PO 0908 Magnesium Citrate 300 ML ONE ONE 06/13 0145 DC 06/13 PO 06/13 0146 0238 Magnesium Hydroxide 30 ML ONE ONE 06/12 1000 DC 06/12 PO 06/12 1001 1157 Senna 187 MG AT BEDTIME 06/10 2200 AC 06/12 PO 2047 Simethicone 80 MG Q4P PRN 06/08 1300 AC 06/12 PO 2012 Sodium Chloride 2 SPRAY Q4P PRN 06/12 0900 AC LEANDRA Sodium Phosphate 1 UNIT ONCE ONE 06/12 0730 DC 06/12 VA 06/12 0731 0909 Tramadol HCl 50 MG Q4P PRN 06/07 1345 AC 06/13 PO 0552 Last 24 Hrs of Lab/Maco Results Last 24 Hrs of Labs/Mics: Laboratory Tests 06/13/17 0120: APTT 70 H 06/12/17 1549: APTT 38 H 06/12/17 0856: APTT 56 H Assessment/Plan Assessment: 57-year-old female with past medical history significant for pulmonary embolism on anticoagulation with apixiban, insulin-dependent diabetes mellitus, hypothyroidism on levothyroxine, hyperlipidemia on statin, hypertension on Telmisartan who presented with fever, anorexia and myalgias. Problem list: 1. Likely pancreatic cancer with metastasis to liver and lung 2. Fever, likely secondary to malignancy 3. Recent pulmonary embolism 4. Splenic vein thrombosis #Likely pancreatic cancer with metastasis to liver and lung: Given recent findings of CT scan, it seems like patient has pancreatic cancer with metastasis. The plan is for liver biopsy tomorrow. -Appreciate gastroenterology, oncology, surgery recommendations -liver biopsy -Continue heparin drip, discontinue at 0400 on 06/14/2017 -Nothing by mouth after midnight for tomorrow -Pain control -No NSAIDs #Splenic vein thrombosis: CT imaging shows hypodense focus within the liver suggesting infarction. Vascular surgery was consulted and said she has splenic vein thrombosis. At this time she is anticoagulated and there is no indication for IVC filter or further intervention. They do recommend having her on enoxaparin long-term versus warfarin given the survival advantage. -Appreciate vascular surgery recommendations #Fever, likely secondary to malignancy: Patient has malignancy with metastasis to liver and recurrent fevers. Infectious disease has been consulted and thinks this is likely secondary to the malignancy. Cultures show no growth. -Acetaminophen for fevers -Follow cultures -Appreciate ID recommendations #Recent pulmonary embolism: Patient was previously on apixiban. -See above #Chronic medical conditions: -Continue other home medications -Monitor blood sugars, adjust insulin dose as necessary. DVT prophylaxis with heparin Consistent carbohydrate 3 diet Full code Problem List: 1. Pancreatic mass Pain Ratin Pain Location: no Pain Goal: Remain pain free Pain Plan: see a/p Tomorrow's Labs & Rationales: cbc, bep, inr
[2017-06-13 08:25] LABS: ABSOLUTE BASOPHIL COUNT 0.1 /CUMM (0.0-0.2); ABSOLUTE EOSINOPHIL COUNT 0.1 /CUMM (0.0-0.7); ABSOLUTE GRANULOCYTE CT 12.1 /CUMM (1.4-6.5); ABSOLUTE MONOCYTE COUNT 1.4 /CUMM (0.10-0.60); BASOPHIL % 0.4 % (0.0-2.0); EOSINOPHIL % 0.5 % (0-5); GRANULOCYTE % 77.6 % (42.2-75.2); HEMATOCRIT 24.9 % (37-47); MEAN CORPUSCULAR HGB 25.2 PG (27.0-31.0); MEAN CORPUSCULAR HGB CONC 32.2 G/DL (33.0-37.0); MEAN CORPUSCULAR VOLUME 78.3 FL (81.0-99.0); MEAN PLATELET VOLUME 9.3 FL (7.4-10.4); PLATELET COUNT 280 /CUMM (130-400); RBC DISTRIBUTION WIDTH 15.3 % (11.5-14.5); RED BLOOD CELL CT 3.18 /CUMM (4.20-5.40); WHITE BLOOD CELL COUNT 15.6 /CUMM (4.8-10.8)
[2017-06-13 08:50] LABS: PT 18.2 SEC (9.4-12.5)
[2017-06-13 14:21] LABS: PTT 53 SEC (25-37)
[2017-06-13 14:55] VITALS: BP 140/76
[2017-06-13 21:59] VITALS: BP 122/60
[2017-06-13 22:05] VITALS: BP 110/50
[2017-06-13 22:22] LABS: PTT 69 SEC (25-37)
[2017-06-14 04:00] LABS: ABSOLUTE BASOPHIL COUNT 0 /CUMM (0.0-0.2); ABSOLUTE EOSINOPHIL COUNT 0.1 /CUMM (0.0-0.7); ABSOLUTE GRANULOCYTE CT 10.7 /CUMM (1.4-6.5); ABSOLUTE LYMPH COUNT 2.1 /CUMM (1.2-3.4); ABSOLUTE MONOCYTE COUNT 1.6 /CUMM (0.10-0.60); BASOPHIL % 0.2 % (0.0-2.0); EOSINOPHIL % 0.4 % (0-5); GRANULOCYTE % 73.9 % (42.2-75.2); HEMATOCRIT 24.1 % (37-47); MEAN CORPUSCULAR HGB 24.9 PG (27.0-31.0); MEAN CORPUSCULAR HGB CONC 31.9 G/DL (33.0-37.0); MEAN CORPUSCULAR VOLUME 78.1 FL (81.0-99.0); MEAN PLATELET VOLUME 9.3 FL (7.4-10.4); PLATELET COUNT 302 /CUMM (130-400); RBC DISTRIBUTION WIDTH 15.2 % (11.5-14.5); RED BLOOD CELL CT 3.08 /CUMM (4.20-5.40); WHITE BLOOD CELL COUNT 14.4 /CUMM (4.8-10.8)
[2017-06-14 04:03] LABS: PT 16.6 SEC (9.4-12.5)
[2017-06-14 05:50] VITALS: BP 164/75
--- NOTE | 2017-06-14 07:26 | PN- Housestaff ---
See Addendum Subjective Follow-up For: Fever, pancreatic mass, liver lesions Subjective: She had fever to 101.3 last night. She subsequently defervesced. This morning, she is ready for the biopsy. She is asking about when she would get the results. She has no other complaints. Review of Systems Constitutional: Reports: see HPI. EENTM: Reports: no symptoms. Cardiovascular: Reports: no symptoms. Respiratory: Reports: no symptoms. Gastrointestinal: Reports: no symptoms. Genitourinary: Reports: no symptoms. Musculoskeletal: Reports: no symptoms. Skin: Reports: no symptoms. Neurological/Psychological: Reports: no symptoms. Hematologic/Endocrine: Reports: no symptoms. Immunologic/Allergic: Reports: no symptoms. Objective Last 24 Hrs of Vital Signs/I&O Vital Signs Date Time Temp Pulse Resp B/P B/P Pulse O2 O2 Flow FiO2 Mean Ox Delivery Rate 06/14 0640 98.6 06/14 0639 98.6 06/14 0550 100.8 113 18 164/75 91 06/14 0527 101.3 06/14 0524 101.3 06/14 0000 CPAP 06/13 2205 99.2 96 18 110/50 96 Room Air 06/13 1623 100.7 06/13 1604 100.7 06/13 1455 99.6 107 20 140/76 91 Room Air 06/13 1340 99.9 06/13 1146 88 150/88 Intake & Output 06/14 0800 06/14 0000 06/13 1600 Intake Total 980 009 5367.6 Output Total Balance 896 016 0003.6 Intake, IV 880 180 729.6 Intake, Oral 0 240 800 Number 1 1 Bowel Movements Physical Exam General Appearance: Alert, Oriented X3, Cooperative, No Acute Distress Cardiovascular: Regular Rate, Normal S1, Normal S2 Lungs: Clear to Auscultation Abdomen: Normal Bowel Sounds, Soft, No Tenderness Extremities: No Edema, Normal Pulses, No Tenderness/Swelling Current Medications: Current Medications Sig/Lonnie Start time Last Medication Dose Route Stop Time Status Admin Acetaminophen 650 MG .STK-MED ONE 06/13 1618 DC PO 06/13 1619 Acetaminophen 650 MG Q8P PRN 06/07 1445 AC 06/14 PO 0527 Bisacodyl 5 MG DAILY PRN 06/11 1545 AC 06/12 PO 1905 Calcium Carbonate 650 MG 4 TIMES/DAY PRN 06/13 1345 AC PO Calcium Carbonate 500 MG .STK-MED ONE 06/13 1335 DC PO 06/13 1336 Dextrose/Sodium 1,000 ML Q20H 06/14 0000 AC 06/14 Chloride IV 0007 Docusate Sodium 100 MG DAILY NEEDED PRN 06/10 0500 AC 06/12 PO 1735 Famotidine 20 MG BID PRN 06/13 1415 AC 06/13 PO 1531 Guaifenesin 600 MG Q12 06/12 1000 AC 06/13 PO 2221 Heparin Sodium 5,000 UNIT .STK-MED ONE 06/13 1559 DC (Porcine) IV 06/13 1600 Heparin Sodium 4,760 UNIT ONCE ONE 06/13 1541 DC 06/13 (Porcine) IV 06/13 1542 1602 Heparin Sodium 25,000 UNIT Q24H 06/11 1100 DC 06/13 (Porcine) IV 06/14 0600 1817 Sodium Chloride 500 ML Insulin Aspart 0 TIDAC 06/11 1200 AC 06/13 SC 1817 Insulin Detemir 50 UNITS DAILY 06/12 1000 DC 06/13 SC 1142 Insulin Detemir 30 UNITS AT BEDTIME 06/11 2200 AC 06/13 SC 2221 Insulin Human Regular 0 Q6 06/13 2359 AC 06/14 SC 0527 Levothyroxine Sodium 0.2 MG DAILY AC 06/07 1039 AC 06/14 PO 0527 Losartan Potassium 100 MG DAILY 06/08 1000 AC 06/13 PO 1146 Phytonadione 5 MG ONCE ONE 06/13 1415 DC 06/13 PO 06/13 1416 1532 Potassium Chloride 40 MEQ ONCE ONE 06/13 1030 DC 06/13 PO 06/13 1031 1143 Senna 187 MG AT BEDTIME 06/10 2200 AC 06/13 PO 2221 Simethicone 80 MG Q4P PRN 06/08 1300 AC 06/13 PO 1443 Sodium Chloride 2 SPRAY Q4P PRN 06/12 0900 AC LEANDRA Tramadol HCl 50 MG Q4P PRN 06/07 1345 AC 06/13 PO 2222 Last 24 Hrs of Lab/[facility] Results Last 24 Hrs of Labs/Mics: Laboratory Tests 06/14/17 0315: Anion Gap 12, Estimated GFR > 60, BUN/Creatinine Ratio 20.0, PT 16.6 H, INR 1.52 H, CBC w Diff NO MAN DIFF REQ, RBC 3.08 L, MCV 78.1 L, MCH 24.9 L, MCHC 31.9 L, RDW 15.2 H, MPV 9.3, Gran % 73.9, Lymphocytes % 14.7 L, Monocytes % 10.8 H, Eosinophils % 0.4, Basophils % 0.2, Absolute Granulocytes 10.7 H, Absolute Lymphocytes 2.1, Absolute Monocytes 1.6 H, Absolute Eosinophils 0.1, Absolute Basophils 0 06/13/17 2140: APTT 69 H 06/13/17 1350: APTT 53 H 06/13/17 0735: Anion Gap 11, Estimated GFR > 60, BUN/Creatinine Ratio 25.0, PT 18.2 H, INR 1.66 H, CBC w Diff NO MAN DIFF REQ, RBC 3.18 L, MCV 78.3 L, MCH 25.2 L, MCHC 32.2 L, RDW 15.3 H, MPV 9.3, Gran % 77.6 H, Lymphocytes % 12.6 L, Monocytes % 8.9, Eosinophils % 0.5, Basophils % 0.4, Absolute Granulocytes 12.1 H, Absolute Lymphocytes 2.0, Absolute Monocytes 1.4 H, Absolute Eosinophils 0.1, Absolute Basophils 0.1 Assessment/Plan Assessment: 57-year-old female with past medical history significant for pulmonary embolism on anticoagulation with apixiban, insulin-dependent diabetes mellitus, hypothyroidism on levothyroxine, hyperlipidemia on statin, hypertension on Telmisartan who presented with fever, anorexia and myalgias. Problem list: 1. Likely pancreatic cancer with metastasis to liver and lung 2. Fever, likely secondary to malignancy 3. Recent pulmonary embolism 4. Splenic vein thrombosis #Likely pancreatic cancer with metastasis to liver and lung: Given recent findings of CT scan, it seems like patient has pancreatic cancer with metastasis. The plan is for liver biopsy today -liver biopsy today -Restart heparin drip after cleared by IR -Pain control -No NSAIDs -Follow up with Dr. Rollins as an outpatient for pathology results #Splenic vein thrombosis: CT imaging shows hypodense focus within the liver suggesting infarction. Vascular surgery was consulted and said she has splenic vein thrombosis. At this time she is anticoagulated and there is no indication for IVC filter or further intervention. They do recommend having her on enoxaparin long-term versus warfarin given the survival advantage. -Appreciate vascular surgery recommendations #Fever, likely secondary to malignancy: Patient has malignancy with metastasis to liver and recurrent fevers. Infectious disease has been consulted and thinks this is likely secondary to the malignancy. Cultures show no growth. -Acetaminophen for fevers -Follow cultures -Appreciate ID recommendations #Recent pulmonary embolism: Patient was previously on apixiban. -See above #Chronic medical conditions: -Continue other home medications -Monitor blood sugars, adjust insulin dose as necessary. DVT prophylaxis with heparin Consistent carbohydrate 3 diet Full code Problem List: 1. Fever malignant Pain Ratin Pain Location: no pain Pain Goal: Remain pain free Pain Plan: see a/p Tomorrow's Labs & Rationales: cbc, bep
[2017-06-14 10:44] LABS: PTT 33 SEC (25-37)
[2017-06-14 14:45] VITALS: BP 158/74
--- NOTE | 2017-06-14 15:23 | PN- Infect Dx ---
Subjective Subjective: MAXIMUM TEMPERATURE 101.3. She underwent a liver biopsy earlier today and is currently without complaints Objective Last 24 Hrs of Vital Signs/I&O Vital Signs Date Time Temp Pulse Resp B/P B/P Pulse O2 O2 Flow FiO2 Mean Ox Delivery Rate 06/14 1445 99.7 94 20 158/74 100 Nasal 4.0L Cannula 06/14 0840 164/75 06/14 0640 98.6 06/14 0639 98.6 06/14 0550 100.8 113 18 164/75 91 06/14 0527 101.3 06/14 0524 101.3 06/14 0000 CPAP 06/13 2205 99.2 96 18 110/50 96 Room Air 06/13 1623 100.7 06/13 1604 100.7 Intake & Output 06/14 1600 06/14 0800 06/14 0000 Intake Total 450 880 420 Output Total Balance 450 880 420 Intake, IV 450 880 180 Intake, Oral 0 240 Number 1 1 Bowel Movements Physical Exam Other Physical Findings: She appears comfortable in no acute distress Exam is unchanged Results Last 24 Hours of Lab Results: Laboratory Tests 06/14 06/14 06/13 1020 0315 2140 Chemistry Sodium (137 - 145 mmol/L) 139 Potassium (3.5 - 5.1 mmol/L) 3.7 Chloride (98 - 107 mmol/L) 95 L Carbon Dioxide (22 - 30 mmol/L) 31 H Anion Gap (5 - 16) 12 BUN (7 - 17 mg/dL) 10 Creatinine (0.5 - 1.0 mg/dL) 0.5 Estimated GFR (>60 ml/min) > 60 BUN/Creatinine Ratio (7 - 25 %) 20.0 Coagulation PT (9.4 - 12.5 SEC) 16.6 H INR (0.90 - 1.19) 1.52 H APTT (25 - 37 SEC) 33 69 H Hematology CBC w Diff NO MAN DIFF REQ WBC (4.8 - 10.8 /CUMM) 14.4 H RBC (4.20 - 5.40 /CUMM) 3.08 L Hgb (12.0 - 16.0 G/DL) 7.7 L Hct (37 - 47 %) 24.1 L MCV (81.0 - 99.0 FL) 78.1 L MCH (27.0 - 31.0 PG) 24.9 L MCHC (33.0 - 37.0 G/DL) 31.9 L RDW (11.5 - 14.5 %) 15.2 H Plt Count (130 - 400 /CUMM) 302 MPV (7.4 - 10.4 FL) 9.3 Gran % (42.2 - 75.2 %) 73.9 Lymphocytes % (20.5 - 51.1 %) 14.7 L Monocytes % (1.7 - 9.3 %) 10.8 H Eosinophils % (0 - 5 %) 0.4 Basophils % (0.0 - 2.0 %) 0.2 Absolute Granulocytes (1.4 - 6.5 /CUMM) 10.7 H Absolute Lymphocytes (1.2 - 3.4 /CUMM) 2.1 Absolute Monocytes (0.10 - 0.60 /CUMM) 1.6 H Absolute Eosinophils (0.0 - 0.7 /CUMM) 0.1 Absolute Basophils (0.0 - 0.2 /CUMM) 0 Last 24 Hours of Maco Results: No recent cultures Assessment/Plan ID Impression: Fevers and leukocytosis persist and are most likely secondary to her presumed metastatic disease to the liver, with no evidence of any infectious process and with her cultures negative. She has undergone a liver biopsy earlier today and will await the results. Suggestion: 1. Could suppress her fevers, either with Tylenol or and nonsteroidal anti- inflammatory, if they are bothersome 2. Await liver biopsy results 3. Continue to follow off antibiotics pending above
[2017-06-14 16:55] LABS: PT 17.2 SEC (9.4-12.5)
--- NOTE | 2017-06-14 17:25 | ULTRASOUND REPORT ---
CLINICAL HISTORY: This patient is a 57 year old female with liver masses who presents to Interventional Radiology for targeted ultrasound-guided percutaneous liver biopsy. PROCEDURE: 1. Limited sonographic evaluation of the liver. 2. Ultrasound-guided targeted needle biopsy of a liver lesion. PHYSICIANS: Dr. Mil Parkinson (attending). MONITORING: The procedure was performed with conscious sedation and analgesia under my direct supervision. Continuous blood pressure, pulse oximetry as well as heartrate monitoring was performed by an independent registered nurse. Physician intraservice sedation time was 25 minutes. MEDICATIONS: 1. Versed 1.5 mg and fentanyl 75 mcg IV were administered. 2. Lidocaine 1%, 15 mL, SQ. COMPLICATIONS: None ESTIMATED BLOOD LOSS: <5 mL SPECIMENS: 3, 20-gauge core biopsy samples of the segment 4 left hepatic lobe lesion IMPLANT: None SITE MARKING: As part of the preprocedure verification policy, a site marking procedure was initiated. Due to the nature the procedure, the insertion site could not be predetermined thus invoking the policy of exemption to site laterality and marking. Insertion site marking was performed in the procedure room in conjunction with imaging confirmation. PROCEDURE NOTE: Informed consent was obtained from the patient prior to the procedure. During this process, the procedure and potential alternatives were explained along with the intended outcome and benefits. The risks of the procedure, including the possibility of an unsuccessful procedure, as well as the risk of not doing the procedure, were discussed. The patient was given the opportunity to ask questions regarding the procedure and appeared competent to make decisions. A signed consent form documenting this discussion was placed in the medical record. A time-out procedure was performed. The patient was placed supine on the US table. The right upper abdomen was prepped and draped in the usual sterile fashion. All elements of maximal sterile barrier technique followed including use of cap, mask, sterile gown, sterile gloves, a sterile full body drape and hand hygiene. Also followed skin preparation with 2% chlorhexidine for cutaneous antisepsis, and sterile ultrasound preparation with sterile gel and probe cover when applicable. 15 mL of 1% lidocaine was used to obtain local anesthesia of the skin and deeper tissues. Focal ultrasound of the right liver was performed to access for an approach. Local anesthetic with lidocaine was administered under ultrasound guidance. Under ultrasound guidance, the 19 gauge double-wall needle from the [employer] biopsy set was advanced into the lesion within the segment 4 of the left hepatic lobe. The 20 gauge core biopsy needle from the biopsy set was advanced through the double-wall needle. A total of 3 core biopsy samples were obtained. Under ultrasound guidance, the needle track was closed with Gelfoam slurry while the needle was removed. Manual pressure was applied to the track until hemostasis was achieved. The patient tolerated the procedure well. FINDINGS: 1. Successful core needle biopsy of the left-sided liver lesion. 2. No hepatic hematoma or subcapsular hematoma after removal of the biopsy needle. IMPRESSION: Successful core needle biopsy of a left liver lesion. PLAN: 1. The patient was stable after the procedure and was transferred to the interventional recovery area for observation. The patient will be transferred back to her medical room. 2. Patient was instructed to lay on the site of biopsy for 1 hour to minimize risk of subcapsular hematoma. 3. Core biopsy samples will be sent to pathology.
[2017-06-14 22:00] VITALS: BP 149/74
[2017-06-15 06:34] VITALS: BP 145/72
--- NOTE | 2017-06-15 06:55 | PN- Housestaff ---
See Addendum Subjective Follow-up For: Fever secondary to malignancy Subjective: Patient fever to 101.1. She did well overnight. Legs continue to be a little crampy by her abdominal pain has improved. She slept okay. Review of Systems Constitutional: Reports: no symptoms. EENTM: Reports: no symptoms. Cardiovascular: Reports: no symptoms. Respiratory: Reports: no symptoms. Gastrointestinal: Reports: see HPI. Genitourinary: Reports: no symptoms. Musculoskeletal: Reports: see HPI. Skin: Reports: no symptoms. Neurological/Psychological: Reports: no symptoms. Hematologic/Endocrine: Reports: no symptoms. Immunologic/Allergic: Reports: no symptoms. Objective Last 24 Hrs of Vital Signs/I&O Vital Signs Date Time Temp Pulse Resp B/P B/P Pulse O2 O2 Flow FiO2 Mean Ox Delivery Rate 06/15 0634 100.4 106 20 145/72 92 CPAP 06/15 0556 100.1 06/15 0000 93 CPAP 3.5L 06/14 2241 101.1 06/14 2200 101.1 107 20 149/74 92 CPAP 06/14 1445 99.7 94 20 158/74 100 Nasal 4.0L Cannula 06/14 0840 164/75 Intake & Output 06/15 0800 06/15 0000 06/14 1600 Intake Total 450 Output Total Balance 450 Intake, IV 450 Number 1 Bowel Movements Physical Exam General Appearance: Alert, Oriented X3, Cooperative, No Acute Distress Cardiovascular: Regular Rate Lungs: Clear to Auscultation Abdomen: Normal Bowel Sounds, Soft, No Tenderness Extremities: No Edema, Normal Pulses Current Medications: Current Medications Sig/Lonnie Start time Last Medication Dose Route Stop Time Status Admin Acetaminophen 650 MG .STK-MED ONE 06/14 2240 DC PO 06/14 2241 Acetaminophen 650 MG Q8P PRN 06/07 1445 AC 06/15 PO 0556 Bisacodyl 5 MG DAILY PRN 06/11 1545 AC 06/12 PO 1905 Calcium Carbonate 650 MG 4 TIMES/DAY PRN 06/13 1345 AC PO Dextrose/Sodium 1,000 ML Q20H 06/14 0000 DC 06/14 Chloride IV 0007 Docusate Sodium 100 MG DAILY NEEDED PRN 06/10 0500 AC 06/12 PO 1735 Famotidine 20 MG BID PRN 06/13 1415 AC 06/13 PO 1531 Fentanyl Citrate 0 .STK-MED ONE 06/14 0959 DC .ROUTE Gelatin 1 UNIT .STK-MED ONE 06/14 1318 DC TOP 06/14 1319 Guaifenesin 600 MG Q12 06/12 1000 AC 06/13 PO 2221 Insulin Aspart 0 TIDAC 06/14 1700 AC 06/14 SC 1758 Insulin Aspart 0 TIDAC 06/11 1200 DC 06/13 SC 1817 Insulin Detemir 30 UNITS AT BEDTIME 06/11 2200 AC 06/14 SC 2142 Insulin Human Regular 0 Q6 06/13 2359 DC 06/14 SC 1436 Levothyroxine Sodium 0.2 MG DAILY AC 06/07 1039 AC 06/15 PO 0556 Lidocaine 1 ML .STK-MED ONE 06/14 1318 DC ID 06/14 1319 Losartan Potassium 100 MG DAILY 06/08 1000 AC 06/14 PO 0840 Midazolam HCl 0 .STK-MED ONE 06/14 0959 DC .ROUTE Ondansetron HCl 4 MG ONCE ONE 06/14 0845 DC 06/14 IV 06/14 0846 0840 Pantoprazole Sodium 40 MG ONCE ONE 06/14 1030 DC 06/14 IV 06/14 1031 1430 Patient Medication 1 ED ONE ONE 06/14 1130 DC 06/14 Teaching ED 06/14 1131 1438 Senna 187 MG AT BEDTIME 06/10 2200 AC 06/14 PO 2140 Simethicone 80 MG Q4P PRN 06/08 1300 AC 06/13 PO 1443 Sodium Chloride 2 SPRAY Q4P PRN 06/12 0900 AC LEANDRA Tramadol HCl 50 MG Q4P PRN 06/07 1345 AC 06/14 PO 2003 Last 24 Hrs of Lab/Mac[facility] Results Last 24 Hrs of Labs/Mics: Laboratory Tests 06/14/17 1626: PT 17.2 H, INR 1.57 H 06/14/17 1020: APTT 33 Assessment/Plan Assessment: 57-year-old female with past medical history significant for pulmonary embolism on anticoagulation with apixiban, insulin-dependent diabetes mellitus, hypothyroidism on levothyroxine, hyperlipidemia on statin, hypertension on Telmisartan who presented with fever, anorexia and myalgias. Problem list: 1. Likely pancreatic cancer with metastasis to liver and lung 2. Fever, likely secondary to malignancy 3. Recent pulmonary embolism 4. Splenic vein thrombosis #Likely pancreatic cancer with metastasis to liver and lung: Given recent findings of CT scan, it seems like patient has pancreatic cancer with metastasis. She had liver biopsy yesterday and will follow-up with oncology for the results. -Consider restarting anticoagulation today -Pain control -Follow up with Dr. Rollins as an outpatient for pathology results #Splenic vein thrombosis: CT imaging shows hypodense focus within the liver suggesting infarction. Vascular surgery was consulted and said she has splenic vein thrombosis. At this time she is anticoagulated and there is no indication for IVC filter or further intervention. They do recommend having her on enoxaparin long-term versus warfarin given the survival advantage. -Appreciate vascular surgery recommendations #Fever, likely secondary to malignancy: Patient has malignancy with metastasis to liver and recurrent fevers. Infectious disease has been consulted and thinks this is likely secondary to the malignancy. Cultures show no growth. -Acetaminophen for fevers -Follow cultures -Appreciate ID recommendations #Recent pulmonary embolism: Patient was previously on apixiban. -See above #Chronic medical conditions: -Continue other home medications -Monitor blood sugars, adjust insulin dose as necessary. DVT prophylaxis with heparin Consistent carbohydrate 3 diet Full code Problem List: 1. Fever malignant 2. Pancreatic mass Pain Ratin Pain Location: no Pain Goal: Remain pain free Pain Plan: see a/p Tomorrow's Labs & Rationales: no
[2017-06-15 08:52] LABS: ABSOLUTE BASOPHIL COUNT 0 /CUMM (0.0-0.2); ABSOLUTE EOSINOPHIL COUNT 0.1 /CUMM (0.0-0.7); ABSOLUTE GRANULOCYTE CT 11.6 /CUMM (1.4-6.5); ABSOLUTE LYMPH COUNT 1.7 /CUMM (1.2-3.4); ABSOLUTE MONOCYTE COUNT 1.3 /CUMM (0.10-0.60); BASOPHIL % 0.1 % (0.0-2.0); EOSINOPHIL % 0.5 % (0-5); GRANULOCYTE % 78.8 % (42.2-75.2); HEMATOCRIT 23.3 % (37-47); MEAN CORPUSCULAR HGB 25.1 PG (27.0-31.0); MEAN CORPUSCULAR HGB CONC 32.5 G/DL (33.0-37.0); MEAN CORPUSCULAR VOLUME 77.4 FL (81.0-99.0); MEAN PLATELET VOLUME 9.2 FL (7.4-10.4); PLATELET COUNT 217 /CUMM (130-400); RBC DISTRIBUTION WIDTH 15.9 % (11.5-14.5); RED BLOOD CELL CT 3.01 /CUMM (4.20-5.40); WHITE BLOOD CELL COUNT 14.7 /CUMM (4.8-10.8)
[2017-06-15 14:27] VITALS: BP 160/80
== END 2017-06-15 18:47 | disposition home health service (06) | DRG 435 ==
LOC: ERH 06:24 → ERHI 09:55 → 2NB 09:55 → ENRESERV 10:22 → ENTRNSPT 10:43 → EDTRNSPTSTS 10:54 → EDTRNSPT 10:54 → 2NB 11:04 → CMPTRNSPT 11:06 → 2NB 14:16 → ENPENDDIS 06-15 10:49 → ENTRNSPT 06-15 18:10 → EDTRNSPT 06-15 18:31 → EDTRNSPTSTS 06-15 18:31 → 2NB 06-15 18:47 → CMPTRNSPT 06-15 18:52
PROVIDERS: Emergency Medicine; Hospitalist; Internal Medicine; Student in an Organized Health Care Education/Training Program
PROC: 30233N1 Transfusion of Nonautologous Red Blood Cells into Peripheral Vein, Percutaneous Approach (ICD-10-PCS; principal; 2017-06-14)
PROC: 0FB23ZX Excision of Left Lobe Liver, Percutaneous Approach, Diagnostic (ICD-10-PCS; 2017-06-14)
DX: C25.9 Malignant neoplasm of pancreas, unspecified (principal); K76.3 Infarction of liver; J96.01 Acute respiratory failure with hypoxia; I82.890 Acute embolism and thrombosis of other specified veins; C78.00 Secondary malignant neoplasm of unspecified lung; D64.9 Anemia, unspecified; E11.9 Type 2 diabetes mellitus without complications; C78.7 Secondary malignant neoplasm of liver and intrahepatic bile duct; E03.9 Hypothyroidism, unspecified; G47.33 Obstructive sleep apnea (adult) (pediatric); I10 Essential (primary) hypertension; M79.7 Fibromyalgia; Z79.01 Long term (current) use of anticoagulants; Z79.4 Long term (current) use of insulin; Z86.711 Personal history of pulmonary embolism; Z87.891 Personal history of nicotine dependence; Z88.8 Allergy status to other drugs, medicaments and biological substances; K58.9 Irritable bowel syndrome, unspecified; K59.00 Constipation, unspecified
CPT/HCPCS: 2NBP; 86618; 36415; 36592; 71046; 74177; 81001; 82436; 87040; 87070; 87086; 87804; 87804-59; 96374; 99291; G0480; J0131; J1644; J1650; J1815; J3490; J7042; P9017